=== PATIENT | female | born 1965 | race African-American/Black ===

== ENCOUNTER 2017-03-05 17:25 | Inpatient (IN) | payer OTHER ==
[2017-03-05 18:24] LABS: ABS Basophils 0 10^3/ul (0-0.2); ABS Eosinophils 0 10^3/ul (0-0.6); ABS Lymphocytes 1.2 10^3/ul (1.0-4.8); ABS Monocytes 0.5 10^3/ul (0-0.8); ABS Neutrophils 3.6 10^3/ul (1.5-7.7); ABS Nucleated RBC 0 10^3/ul; Eosinophil % 0.5 % (0-6); Hematocrit 34 % (35-47); Hemoglobin 11.3 g/dl (12.0-16.0); Lymphocyte % 22.1 % (25-47); Mean Corpuscular HGB Conc 33 g/dl (31-36); Mean Corpuscular Hemoglobin 29 pg (27-31); Mean Corpuscular Volume 88 fL (80-97); Mean Platelet Volume 9 um3 (7.4-10.4); Nucleated Red Blood Cells % 0.1; Platelet Count 243 10^3/ul (150-450); Red Blood Count 3.89 10^6/ul (4.0-5.4); Red Cell Distribution Width 15 % (10.5-15); White Blood Count 5.3 10^3/ul (3.5-10.8)
[2017-03-05 18:39] LABS: EGFR Non-African American 49.1 (>60)
--- NOTE | 2017-03-05 19:35 | RAD ---
INDICATION: Syncope COMPARISON: Chest x-ray March 17, 2015 TECHNIQUE: Single AP portable view of the chest was obtained. FINDINGS: Image quality is compromised due to the relative inferiority of a portable chest x-ray. The heart and mediastinum exhibit normal size and contour. The lungs are grossly clear. There is no evidence of a large pleural effusion. Visualized bones are normal for the patient's age. IMPRESSION: No radiographic evidence for acute cardiopulmonary abnormality on this portable chest x-ray.
[2017-03-05] MEDS ORDERED: Acetaminophen TAB* 325 MG PO PRN (20:05)
[2017-03-06] MEDS: Chlorhexidine MOUTHWASH 0.12%* 15 ML UDC SWISH SPIT SCH ×3 (00:21→21:52)
[2017-03-06] MEDS: Nystatin TOP POWDER* 15 GM BTL TOPICAL SCH ×3 (00:21→21:52)
[2017-03-06] MEDS: Heparin VIAL(*) 5000 UNITS/ML VIAL (FIVE THOUSAND) SUBCUT SCH ×4 (00:22→21:52)
--- NOTE | 2017-03-06 00:23 | HP ---
CC: Cathy Flores MD; Dr. Almaraz * HISTORY AND PHYSICAL: DATE OF ADMISSION: 03/05/17 PRIMARY CARE PROVIDER: Cathy Flores MD CHIEF COMPLAINT: "Passing out." HISTORY OF PRESENT ILLNESS: Leda Bhat is a 52-year-old female with history of hypertension, dyslipidemia, recent evaluation for possibility of colovaginal fistula who presented to the hospital after she passed out twice at her home. The patient stated that she was walking and all of a sudden she passed out. It was a witnessed syncope, lasted approximately 2 minutes. The patient came back and regained consciousness without any subsequent confusion, chest pain or shortness of breath. She stated that she lied in bed for a while because she felt weak and she decided to go to the bathroom to get ready to go to the emergency department and then she passed out again. The patient has no other symptoms and she had been feeling at her baseline recently. PAST MEDICAL HISTORY: Includes: 1. Hypertension. 2. Obesity. 3. History of sarcoidosis. 4. Dyslipidemia. 5. Depression. 6. Gastroesophageal reflux disease. 7. Impaired fasting glucose tolerance. MEDICATIONS AT HOME: Include: 1. Metoprolol 50 mg twice a day. 2. Chlorhexidine mouthwash 10 mL b.i.d. 3. Nystatin topical b.i.d. 4. Calcium carbonate and vitamin D 1 tablet daily. 5. Fluoxetine 40 mg daily. 6. Amlodipine 10 mg daily. 7. Losartan 100 mg daily. ALLERGIES: No known drug allergies. FAMILY HISTORY: Positive for mother who had pacemaker placement at the age of 65 and of old age in her 80s. Father had history of coronary artery bypass grafting in his 70s and in his 80s of old age. SOCIAL HISTORY: The patient smoked last 15 years ago. She denies any drug use. Drinks an occasional glass of wine. She lives alone and her oldest son, Remi Bhat, is her surrogate, Remi's phone number is [phone]. REVIEW OF SYSTEMS: Please see history of present illness. In addition to above mentioned, the patient stated that she had feeling fine. Denies any chest pain or shortness of breath, but she states that also she was told by multiple nurses in the past who checked her blood pressures and heart rate that she may be on "too much metoprolol." She has history of problems with possibility of a rectovaginal fistula and she stated that sometimes when she goes to the bathroom, it appears that some stool comes out of her vagina. She stated that the evaluation for that had been nonconclusive and she had a normal colonoscopy and evaluation in [place] in the past. PHYSICAL EXAMINATION GENERAL: The patient is a pleasant 52-year-old female with a BMI of 36. The patient is in no acute distress. Alert, awake, and oriented x3. VITAL SIGNS: Blood pressure of 137/74, heart rate of 53 but ranges between 35 and 53, respiratory rate 19, oxygen saturation 100% on room air, temperature of 97.5. HEENT: Head: Atraumatic, normocephalic. Eyes: Pupils are equal, reactive to light and accommodation. Oropharynx clear. Mucosa moist. NECK: Supple. No JVD. No bruits bilaterally. RESPIRATORY: Clear to auscultation bilaterally. CARDIOVASCULAR: Regular rate and rhythm. No murmur. ABDOMEN: Soft, nontender. Bowel sounds are present in all 4 quadrants. EXTREMITIES: There is no edema. Pulses are 2+ bilaterally. No clubbing, cyanosis. NEUROLOGIC: Cranial nerves II through XII grossly intact. Motor strength is 5/ 5 bilaterally. Sensation grossly intact. Speech clear. SKIN: No ecchymotic areas. No rashes noted. PSYCHIATRIC: The patient is pleasant and cooperative with evaluation, oriented x3 with no evidence of anxiety or depression. LAB DATA/DIAGNOSTIC STUDIES: White blood cell count of 5.3, hemoglobin 11.3, hematocrit of 34, platelets of 243,000. Sodium of 134, potassium 4.3, chloride 102, carbon dioxide 22, BUN 17, creatinine 1.16. Liver function tests were unremarkable. TSH of 2.48, lactic acid of 1.0, magnesium 2.0. The patient's EKG showed sinus bradycardia with heart rate in the 50s with prolonged LA interval and right bundle branch block. Portable chest x-ray read by the radiologist, impression: "No angiographic evidence for acute cardiopulmonary abnormality on his portable chest x-ray." ASSESSMENT AND PLAN: 1. This is a 52-year-old female who is on metoprolol for hypertension and presents with symptomatic bradycardia and syncope. At this point, it may be due to metoprolol, which is going to be discontinued. Due to the patient being now hemodynamically stable, she is going to be placed on telemetry monitored bed. As long as she does not become hypotensive, we can monitor her with pacer pads in place. I will ask Cardiology consultation in the morning. Her TSH is within normal limits and there are no electrolyte abnormalities to justify the patient's bradycardia otherwise. 2. For the patient's hypertension, her remaining medication amlodipine and losartan is going to be continued. 3. For DVT prophylaxis, the patient is going to be placed on heparin subcutaneously. 4. The patient's code status is full and her surrogate is her son as mentioned above. TIME SPENT: Approximately 62 minutes were spent on admission of this patient, more than half that time was spent [id number] with the patient during the interview and physical exam. [id number]/[facility] #: [id number] RIGO
[2017-03-06] MEDS ORDERED: Losartan TAB* 25 MG PO ONE (00:38)
[2017-03-06] MEDS ORDERED: Perflutren Lipid Microsphere* 3 ML VIAL ONE (07:58)
[2017-03-06] MEDS ORDERED: FLUoxetine CAP* 20 MG PO SCH (09:00)
[2017-03-06] MEDS ORDERED: Losartan TAB* 25 MG PO SCH (09:00)
--- NOTE | 2017-03-06 10:07 | ECHO ---
Patient: CONOR LAZO [facility] Rec#: [id number] : 1965 Date: 03/06/2017 Age: 52y Height: 160.02 cm / 63.0 in Weight: 94.35 kg / 207.9 lbs Sex: F BSA: 1.97 Room#: ICU 10 Admit Date#: 03/05/2017 Type: Inpatient Referring: Suni Sethi MD Reading: Deepak Lugo MD Hand Clerical Verifier: Mitali Murrell,LEENACS,RDMS CC: SHARON BAER Transthoracic Echocardiogram Indication: Bradycardia, Syncope BP: 141/66 HR: 59 Rhythm: Bradycardia Findings History: HTN, HLD, sarcoidosis, GERD, RBBB Technical Comments: The study quality is fair. The study is technically limited due to poor apical windows. Left Ventricle: The left ventricular chamber size is normal. Moderate concentric left ventricular hypertrophy is observed. Global left ventricular wall motion and contractility are within normal limits. There is normal left ventricular systolic function. The estimated ejection fraction is 60-65%. There is an E to A reversal in the mitral valve flow pattern suggestive of diastolic dysfunction. Left Atrium: The left atrial chamber size is normal. Right Ventricle: The right ventricular chamber size and systolic function are within normal limits. Right Atrium: The right atrium appears normal. Aortic Valve: The aortic valve is trileaflet. There is no evidence of aortic valve thickening. Systolic excursion of the aortic valve is normal. There is no evidence of aortic regurgitation. There is no evidence of aortic stenosis. Mitral Valve: The mitral valve leaflets appear normal. There is no evidence of mitral regurgitation. There is no evidence of mitral stenosis. Tricuspid Valve: The tricuspid valve leaflets are normal. There is trace tricuspid regurgitation. Unable to estimate the right ventricular systolic pressure. Pulmonic Valve: There is no evidence of pulmonic valve thickening. There is a trace pulmonic regurgitation. Pericardium: There is no significant pericardial effusion. Aorta: The aortic root appears normal. There is no dilatation of the aortic arch. Pulmonary Artery: The main pulmonary artery appears normal. Venous: The inferior vena cava appears normal in size. There is a greater than 50% respiratory change in the inferior vena cava dimension. Contrast: Definity was used to optimize study. A total of 2 ml was used. Definity was given by Melissa, EMPLOYEE DEVELOPMENT SPECIALIST, and patient tolerated it well. Conclusions The study is technically limited due to poor apical windows. Moderate concentric left ventricular hypertrophy is observed. There is normal left ventricular systolic function. The estimated ejection fraction is 60-65%. No significant valvular disease: There is trace tricuspid regurgitation. There is a trace pulmonic regurgitation. No reports of prior studies are offered for comparison. Measurements Name Value Normal Range RVIDd (AP) 2D 2.4 cm (0.9 - 2.6) IVSd (2D) 1.4 cm (0.6 - 1) LVPWd (2D) 1.3 cm (0.6 - 1) LVIDd (2D) 4.6 cm (3.6 - 5.4) LVIDs (2D) 2.5 cm - LV FS (2D) 45 % (25 - 45) Aortic Annulus 1.9 cm (1.4 - 2.6) Ao root diameter (2D) 2.6 cm (2.1 - 3.5) Ascending Ao 3 cm (2.1 - 3.4) Aortic arch 3.1 cm (1.8 - 3.4) LA dimension (AP) 2D 3.5 cm (2.3 - 3.8) LAd ISD 4CH 5.2 cm (2.9 - 5.3) LA ISD 4CH W 4.4 cm (2.5 - 4.5) Name Value Normal Range LA ESV SP 4CH (A/L) 67.27 ml - LA ESV SP 2CH (A/L) 62.15 ml - LA ESV BP (A/L) 65.78 ml - LA ESV BP (A/L) index 33 ml/m2 - LA ESV SP 4CH (MOD) 61.65 ml - LA ESV SP 2CH (MOD) 58.66 ml - LV EDV SP 4CH (MOD) 87.94 ml - LV ESV SP 4CH (MOD) 29.73 ml - EF SP 4CH (MOD) 66.19 % - LV EDV SP 2CH (MOD) 74.04 ml - LV ESV SP 2CH (MOD) 28.17 ml - EF SP 2CH (MOD) 61.96 % - LV EDV BP 83.23 ml - LV ESV BP 28.83 ml - BP EF (MOD) 65 % - Name Value Normal Range MV E-wave Vmax 0.6 m/sec - MV deceleration time 281 msec - MV A-wave Vmax 0.7 m/sec - MV E:A ratio 0.9 ratio - P. vein S-wave Vmax 0.4 m/sec - P. vein D-wave Vmax 0.4 m/sec - P. vein S:D Vmax ratio 1.1 ratio - P. vein A-wave duration 135 msec - LV septal e' Vmax 0.04 m/sec - LV lateral e' Vmax 0.06 m/sec - LV E:e' septal ratio 15 ratio - LV E:e' lateral ratio 10 ratio - Name Value Normal Range AV Vmax 1.6 m/sec - AV VTI 32.3 cm - AV peak gradient 10.1 mmHg - AV mean gradient 4.4 mmHg - LVOT Vmax 1.2 m/sec - LVOT VTI 26.6 cm - LVOT peak gradient 6 mmHg - LVOT mean gradient 2.6 mmHg - ADEN Vmax 1 m/sec - Name Value Normal Range RAP 8 mmHg - IVC diameter 1.3 cm - Name Value Normal Range PV Vmax 0.9 m/sec - PV peak gradient 3.2 mmHg -
[2017-03-06] MEDS: amLODIPine TAB* 5 MG PO SCH (10:14)
[2017-03-06] MEDS: Losartan TAB* 25 MG PO SCH ×2 (10:14→21:52)
--- NOTE | 2017-03-06 11:12 | PN ---
Subjective Date of Service: 03/06/17 Interval History: Pt feels well, had one event of ventricular standstill x approx 3-4 sec thins AM , asymptomatic Objective Active Medications: Acetaminophen (Tylenol Tab*) 650 mg PO Q4H PRN PRN Reason: FEVER/PAIN Amlodipine Besylate (Norvasc Tab*) 10 mg PO DAILY [facility] Last Admin: 03/06/17 10:14 Dose: 10 mg Chlorhexidine Gluconate (Peridex Mouth Wash 0.12%*) 10 ml SWISH SPIT BID [facility] Last Admin: 03/06/17 10:14 Dose: 10 ml Heparin Sodium (Porcine) (Heparin Vial(*)) 5,000 units SUBCUT Q8HR [facility] Last Admin: 03/06/17 06:44 Dose: 5,000 units Losartan Potassium (Cozaar Tab*) 50 mg PO BID [facility] Last Admin: 03/06/17 10:14 Dose: 50 mg Nystatin (Nystatin Top Powder*) 1 applic TOPICAL BID [facility] Last Admin: 03/06/17 10:14 Dose: 1 applic Vital Signs - 8 hr 03/06/17 03/06/17 03/06/17 03:15 03:30 03:45 Temperature Pulse Rate 54 52 51 Respiratory 19 15 16 Rate Blood Pressure 128/69 124/65 135/68 (mmHg) O2 Sat by Pulse 98 97 99 Oximetry 03/06/17 03/06/17 03/06/17 03:55 04:00 04:01 Temperature 98.7 F Pulse Rate 53 52 Respiratory 18 15 18 Rate Blood Pressure 128/63 (mmHg) O2 Sat by Pulse 98 98 Oximetry 03/06/17 03/06/17 03/06/17 04:15 04:30 04:45 Temperature Pulse Rate 56 58 53 Respiratory 16 15 16 Rate Blood Pressure 118/59 129/58 110/58 (mmHg) O2 Sat by Pulse 95 95 96 Oximetry 03/06/17 03/06/17 03/06/17 05:00 05:01 05:15 Temperature Pulse Rate 57 59 54 Respiratory 16 18 17 Rate Blood Pressure 105/52 113/59 (mmHg) O2 Sat by Pulse 97 97 97 Oximetry 03/06/17 03/06/17 03/06/17 05:30 05:45 06:00 Temperature Pulse Rate 55 52 54 Respiratory 16 13 16 Rate Blood Pressure 115/62 131/66 107/51 (mmHg) O2 Sat by Pulse 97 99 93 Oximetry 03/06/17 03/06/17 03/06/17 06:01 06:10 06:15 Temperature Pulse Rate 48 49 Respiratory 17 18 10 Rate Blood Pressure 106/55 (mmHg) O2 Sat by Pulse 98 99 Oximetry 03/06/17 03/06/17 03/06/17 06:31 07:00 07:01 Temperature Pulse Rate 56 53 51 Respiratory 15 15 20 Rate Blood Pressure 117/64 141/66 (mmHg) O2 Sat by Pulse 99 96 99 Oximetry 03/06/17 03/06/17 03/06/17 07:48 08:00 08:01 Temperature 97.5 F Pulse Rate Respiratory 18 18 Rate Blood Pressure 134/73 (mmHg) O2 Sat by Pulse Oximetry 03/06/17 03/06/17 03/06/17 09:00 09:01 10:00 Temperature Pulse Rate Respiratory 17 15 21 Rate Blood Pressure 125/73 (mmHg) O2 Sat by Pulse Oximetry 03/06/17 10:01 Temperature Pulse Rate Respiratory 21 Rate Blood Pressure 150/69 (mmHg) O2 Sat by Pulse Oximetry Oxygen Devices in Use Now: None Appearance: 52 yo F in nAD, aAOx3 Eyes: No Scleral Icterus, PERRLA Ears/Nose/Mouth/Throat: NL Teeth, Lips, Gums, Mucous Membranes Moist Neck: NL Appearance and Movements; NL JVP, Trachea Midline Respiratory: Symmetrical Chest Expansion and Respiratory Effort, Clear to Auscultation Cardiovascular: NL Sounds; No Murmurs; No JVD, RRR Abdominal: NL Sounds; No Tenderness; No Distention Lymphatic: No Cervical Adenopathy Extremities: No Clubbing, Cyanosis, - - trace pedeal edema b/l Skin: No Rash or Ulcers, No Nodules or Sclerosis Neurological: Alert and Oriented x 3, NL Muscle Strength and Tone Result Diagrams: 03/05/17 17:40 03/05/17 19:30 Microbiology and Other Data: Microbiology 03/06/17 00:53 Nasal Screen MRSA (PCR)(MELINA) - Final Nasal Mrsa Negative Assess/Plan/Problems-Billing Assessment: 52 yo F with h/o sarcoidosis, HTN presents after 2x syncopal events with HR in 30's - Patient Problems (1) Bradycardia Comment: Pt' s last metoprolol dose was on 03/05/17 AM pt still has bradycaria and ventricular standstill this aM. Echo shows EF 65% (2) HTN (hypertension) Comment: losartan, Norvasc to be cont (3) DVT prophylaxis Comment: HSQ (4) Depression Comment: pt requested to be take on Prozac, was not taking it at home Status and Disposition: inpatient
[2017-03-06] MEDS ORDERED: LORazepam TAB(*) 0.5 MG PO PRN (12:17)
[2017-03-06] MEDS ORDERED: LORazepam TAB(*) 0.5 MG ONE (12:21)
--- NOTE | 2017-03-06 13:04 | ED ---
Domi Marcano Thomas, scribed for Urbano Mendez MD on 03/05/17 at 1746 . Syncope/Near Syncope - HPI Summary HPI Summary: Patient is a 52 year old female who came to the emergency department after two episodes of fainting. The patient became dizzy this morning at 10am after taking her blood pressure medication. At 3pm today, she experienced her first episode of fainting, followed by a second. The patient denies any other symptoms , nausea, or diarrhea. - History Of Current Complaint Chief Complaint: EDDysrhythmPalp Time Seen by Provider: 03/05/17 17:34 Hx Obtained From: Patient Onset/Duration: Sudden Onset, Still Present Timing: Frequency Of Episodes - The patient fainted two times beginning at 3pm today. Context: Loss Of Consciousness Activity At Onset: At Rest Aggravating Factor(s): Nothing Alleviating Factor(s): Nothing Associated Signs And Symptoms: Dizzy, Other - [place] like she was going to have diarrhea but didn't. - Allergies/Home Medications Allergies/Adverse Reactions: Allergies Allergy/AdvReac Type Severity Reaction Status Date / Time No Known Allergies Allergy Verified 01/21/16 13:48 Home Medications: Home Medications Calcium Carbonate-Cholecalcife [Calcium 600/Vitamin D] 1 tab PO DAILY 03/05/17 [ History Confirmed 03/05/17] Chlorhexidine MOUTHWASH 0.12%* [Peridex Mouth Wash 0.12%*] 10 ml PO BID [History Confirmed 03/05/17] FLUoxetine CAP* [PROzac CAP*] 40 mg PO QAM 03/05/17 [History Confirmed 03/05/17] Losartan TAB* [Cozaar TAB*] 100 mg PO DAILY 03/05/17 [History Confirmed 03/05/17 ] Metoprolol Tartrate TAB* [Lopressor TAB*] 50 mg PO BID 03/05/17 [History Confirmed 03/05/17] Nystatin TOP POWDER* 1 applic TOPICAL BID 03/05/17 [History Confirmed 03/05/17] amLODIPine TAB* [Norvasc 5 mg TAB*] 10 mg PO DAILY 03/05/17 [History Confirmed 03/05/17] PMH/Surg Hx/FS Hx/Imm Hx Endocrine/Hematology History: Denies: Hx Diabetes Cardiovascular History: Reports: Hx Hypertension Denies: Hx Pacemaker/ICD History: Denies: Hx Renal Disease Musculoskeletal History: Denies: Hx Osteoporosis Sensory History: Denies: Hx Hearing Aid Psychiatric History: Denies: Hx Panic Disorder - Surgical History Surgery Procedure, Year, and Place: UTERINE ABLATION. LYMPH NODES REMOVED A FEW REMOVED FROM CHEST. LT BREAST BIOPSY - BENIGN Infectious Disease History: No Infectious Disease History: Denies: Traveled Outside the [place] in Last 30 Days - Family History Known Family History: Positive: Hypertension Negative: Diabetes - Social History Hx Tobacco Use: No Smoking Status (MU): Former Smoker Review of Systems Negative: Fever Negative: Diarrhea, Nausea Neurological: Other - Dizziness Positive: Syncope All Other Systems Reviewed And Are Negative: Yes Physical Exam - Summary Physical Exam Summary: Appearance: The patient is well-nourished in no acute distress and in no acute pain. Skin: The skin is warm and dry and skin color reflects adequate perfusion. HEENT: The head is normocephalic and atraumatic. The pupils are equal and reactive. The conjunctivae are clear and without drainage. Nares are patent and without drainage. Mouth reveals moist mucous membranes and the throat is without erythema and exudate. The external ears are intact. The ear canals are patent and without drainage. The tympanic membranes are intact. Neck: the neck is supple with full range of motion and non-tender. There are no carotid bruits. There is no neck vein distension. Respiratory: Chest is non-tender. Lungs are clear to auscultation and breath sounds are symmetrical and equal. Cardiovascular: Heart is regular rhythm and bradycardic. There is no murmur or rub auscultated. There is no peripheral edema and pulses are symmetrical and equal. Abdomen: The abdomen is soft and non-tender. There are normal bowel sounds heard in all four quadrants and there is no organomegaly palpated. Musculoskeletal: There is no back tenderness noted. Extremities are non-tender with full range of motion. There is good capillary refill. There is no peripheral edema or calf tenderness elicited. Neurological: Patient is alert and oriented to person, place and time. The patient has symmetrical motor strength in all four extremities. Cranial nerves are grossly intact. Deep tendon reflexes are symmetrical and equal in all four extremities. Psychiatric: The patient has an appropriate affect and does not exhibit any anxiety or depression. Triage Information Reviewed: Yes Vital Signs On Initial Exam: Initial Vitals Temp Pulse Resp BP Pulse Ox 97.5 F 37 8 158/54 98 03/05/17 17:27 03/05/17 17:27 03/05/17 17:27 03/05/17 17:27 03/05/17 17:27 Vital Signs Reviewed: Yes Diagnostics - Vital Signs Vital Signs Temp Pulse Resp BP Pulse Ox 03/05/17 17:27 97.5 F 37 8 158/54 98 - Laboratory Lab Results: Lab Results 03/05/17 03/05/17 03/05/17 Range/Units 17:40 17:40 17:40 WBC 5.3 (3.5-10.8) 10^3/ul RBC 3.89 L (4.0-5.4) 10^6/ul Hgb 11.3 L (12.0-16.0) g/dl Hct 34 L (35-47) % MCV 88 (80-97) fL MCH 29 (27-31) pg MCHC 33 (31-36) g/dl RDW 15 (10.5-15) % Plt Count 243 (150-450) 10^3/ul MPV 9 (7.4-10.4) um3 Neut % (Auto) 68.0 (38-83) % Lymph % (Auto) 22.1 L (25-47) % Aiken % (Auto) 8.9 (1-9) % Eos % (Auto) 0.5 (0-6) % Baso % (Auto) 0.5 (0-2) % Absolute Neuts (auto) 3.6 (1.5-7.7) 10^3/ul Absolute Lymphs (auto) 1.2 (1.0-4.8) 10^3/ul Absolute Monos (auto) 0.5 (0-0.8) 10^3/ul Absolute Eos (auto) 0 (0-0.6) 10^3/ul Absolute Basos (auto) 0 (0-0.2) 10^3/ul Absolute Nucleated RBC 0 10^3/ul Nucleated RBC % 0.1 Sodium 132 L (133-145) mmol/L Potassium TNP Chloride 102 (101-111) mmol/L Carbon Dioxide 22 (22-32) mmol/L Anion Gap 8 (2-11) mmol/L BUN 17 (6-24) mg/dL Creatinine 1.16 H (0.51-0.95) mg/dL Est GFR ( Amer) 63.1 (>60) Est GFR (Non-Af Amer) 49.1 (>60) BUN/Creatinine Ratio 14.7 (8-20) Glucose 109 H (70-100) mg/dL Lactic Acid 1.0 (0.5-2.0) mmol/L Calcium 9.7 (8.6-10.3) mg/dL Magnesium TNP Total Bilirubin 0.40 (0.2-1.0) mg/dL AST TNP ALT 22 (7-52) U/L Alkaline Phosphatase 79 (34-104) U/L Troponin I 0.01 (<0.04) ng/mL Total Protein 7.8 (6.4-8.9) g/dL Albumin 4.1 (3.2-5.2) g/dL Globulin 3.7 (2-4) g/dL Albumin/Globulin Ratio 1.1 (1-3) TSH 2.48 (0.34-5.60) mcIU/mL 03/05/17 Range/Units 19:30 WBC (3.5-10.8) 10^3/ul RBC (4.0-5.4) 10^6/ul Hgb (12.0-16.0) g/dl Hct (35-47) % MCV (80-97) fL MCH (27-31) pg MCHC (31-36) g/dl RDW (10.5-15) % Plt Count (150-450) 10^3/ul MPV (7.4-10.4) um3 Neut % (Auto) (38-83) % Lymph % (Auto) (25-47) % Aiken % (Auto) (1-9) % Eos % (Auto) (0-6) % Baso % (Auto) (0-2) % Absolute Neuts (auto) (1.5-7.7) 10^3/ul Absolute Lymphs (auto) (1.0-4.8) 10^3/ul Absolute Monos (auto) (0-0.8) 10^3/ul Absolute Eos (auto) (0-0.6) 10^3/ul Absolute Basos (auto) (0-0.2) 10^3/ul Absolute Nucleated RBC 10^3/ul Nucleated RBC % Sodium (133-145) mmol/L Potassium 4.3 Chloride (101-111) mmol/L Carbon Dioxide (22-32) mmol/L Anion Gap (2-11) mmol/L BUN (6-24) mg/dL Creatinine (0.51-0.95) mg/dL Est GFR ( Amer) (>60) Est GFR (Non-Af Amer) (>60) BUN/Creatinine Ratio (8-20) Glucose (70-100) mg/dL Lactic Acid (0.5-2.0) mmol/L Calcium (8.6-10.3) mg/dL Magnesium 2.0 Total Bilirubin (0.2-1.0) mg/dL AST 25 ALT (7-52) U/L Alkaline Phosphatase (34-104) U/L Troponin I (<0.04) ng/mL Total Protein (6.4-8.9) g/dL Albumin (3.2-5.2) g/dL Globulin (2-4) g/dL Albumin/Globulin Ratio (1-3) TSH (0.34-5.60) mcIU/mL Result Diagrams: 03/05/17 17:40 03/05/17 19:30 Lab Statement: Any lab studies that have been ordered have been reviewed, and results considered in the medical decision making process. - Radiology CXR Radiology Interpretation Completed By: Radiologist - RESULTS PENDING--SEE [facility] - EKG 17:29 Cardiac Rate: Bradycardia EKG Rhythm: Sinus Bradycardia - at 53 BPM. - Additional Comments Diagnostic Additional Comments: EKG strip obtained at 17:33. Impression: Mobitz Type 2 Second Degree Block. Course/Dx Course Of Treatment: Ms. Bhat presented after faintiing twice today after getting up. She felt fine lying sown but felt dizzy if she got up. She was placed on the monitor and noted to be in a sinus bradycardia primarily but occasionally wouldd go into second degree block and drop every other beat. Her pressure was OK lying down and the external pacer plads were placed on her while we got labs etc. I spoke with Dr. Almaraz and she is being admitted to the ICU by the hospitalists. - Diagnoses Provider Diagnoses: Second degree heart block - Physician Notifications Discussed Care of Patient With: Loyd Almaraz Time Discussed With Above Provider: 19:04 Instructed by Provider To: Other - I consulted with Dr. Almaraz, folding machine operator, and Dr. Sethi, hospitalist. Dr. Sethi will admit the patient. - Critical Care Time Critical Care Time: 30-74 min Discharge - Discharge Plan Condition: Fair Disposition: ADMITTED TO [facility] documentation as recorded by the Domi butler Thomas accurately reflects the service I personally performed and the decisions made by me, Urbano Mendez MD.
[2017-03-06] MEDS ORDERED: ceFAZolin 2 GM PREMIX (*) 2 GM/50 ML BAG IVPB ONE (14:34)
[2017-03-06] MEDS ORDERED: ceFAZolin 1 GM in Dextrose (*) 1 GM/50 ML BAG IVPB ONE (14:34)
[2017-03-06] MEDS ORDERED: Diazepam TAB(*) 5 MG PO ONE (14:34)
[2017-03-06] MEDS: NS 0.9% 1000 ML* 1,000 ML IV SCH (14:45)
[2017-03-06] MEDS ORDERED: fentaNYL* 50 MCG/ML 2 ML VIAL (100 MCG VIAL) ONE (14:51)
[2017-03-06] MEDS ORDERED: Midazolam* 1 MG/ML 10 ML VIAL (10 MG) ONE (14:52)
[2017-03-06] MEDS ORDERED: Lidocaine 1% INJ* 10 MG/ML 30 ML SDV ONE (14:52)
[2017-03-06] MEDS ORDERED: ceFAZolin 1 GM/10 ML flush(*) SYRINGE for pocket flush (cardiology) FLUSH ONE (15:00)
[2017-03-06] MEDS ORDERED: oxyCODONE/Acetamin 5/325 MG* TAB PO PRN (16:22)
--- NOTE | 2017-03-06 16:39 | CONS ---
CC: Dr. Sethi* CARDIOLOGY CONSULTATION: DATE OF CONSULT: 03/06/17 INDICATION FOR CONSULT: Secondary-degree heart block, syncope. HISTORY OF PRESENT ILLNESS: The patient is a 52-year-old female with a history of hypertension, history of sarcoid, who had 2 episodes of near syncope and syncope yesterday. The patient states that she awoke in the morning, was feeling well, took her morning medications, which include metoprolol tartrate 50 mg, she takes it twice a day. The patient states that around 11 o'clock, she was in the kitchen, she smelled some of her food and got a little bit nauseous and then got profoundly lightheaded. She had to sit down and rest for a little bit and then proceed with her day. Around 5 o'clock in the afternoon, she was out of her house and felt lightheaded and felt like she was going to pass out. She sat down in the couch and had a witnessed syncope. She was unresponsive for about a minute and then woke up. She was transported to the emergency room. In the emergency room, she got up to go to the bathroom and had another near syncopal episode. In the emergency room, she was noted to have episodes of 2:1 heart block with heart rates down to 30. This morning, the patient had a run of 6 beats of non-conducted P waves with a total ventricular pause of 4.6 seconds. The patient denies any chest pain. She denies any shortness of breath. She denies any other changes in her medical condition. The patient has not had any new medications added to her regimen. The patient does have a history of sarcoid. She is currently not on any treatment. PAST MEDICAL HISTORY: Significant for hypertension, obesity, sarcoidosis, depression, gastroesophageal reflux disease. OUTPATIENT MEDICATIONS: 1. Metoprolol tartrate 50 mg b.i.d. 2. Fluoxetine 40 mg a day. 3. Amlodipine 10 mg a day. 4. Losartan 100 mg a day. ALLERGIES: No known drug allergies. FAMILY HISTORY: Her mother had a history of pacemaker implantation at the age of 65. Father had history of coronary artery bypass surgery and in his 80s. SOCIAL HISTORY: She is a previous smoker. She quit 15 years ago. Denies any alcohol. She lives with her older son. PHYSICAL EXAM: Height is 5 feet 3 inches, weight 208 pounds. Heart rate is 56 , temperature 98.7, blood pressure 142/68, respiratory rate is 16. Sclerae anicteric. Oropharynx is pink without erythema. Carotids are 2+ without bruits. JVD is normal. Thyroid is normal. Cardiac Exam: S1, S2 without any murmurs, rubs, or gallops. Lungs are clear to auscultation bilaterally. There is no dullness to percussion. Abdomen is soft, nontender, nondistended with normoactive bowel sounds. Extremities show no edema. She has 2+ pulses throughout. The patient is awake, alert, and oriented. She moves all 4 extremities equally. DIAGNOSTIC STUDIES/LAB DATA: An echocardiogram done today demonstrates normal LV size and systolic function, trace tricuspid regurgitation. Laboratory studies: CBC within normal limits. Chemistries within normal limits. Troponin is negative. Her EKG demonstrates sinus bradycardia at 56 beats per minute with incomplete right bundle branch block. IMPRESSION: This is a 52-year-old female with a history of sarcoid, admitted to the hospital with 2 syncopal episodes. The patient clearly has episodes of high- degree atrioventricular block. The question is whether it is because of beta jeanne or whether she has intrinsic conduction disease. For now, my recommendation is to stay off her beta blockers and observe her another 24 hours. The patient has a history of sarcoid, the question is whether she should get a cardiac MRI before pacemaker implantation. I will discuss this with Electrophysiology in [place]. Further recommendations pending her trial off beta jeanne. [id number]/[facility] #: [id number] RIGO
--- NOTE | 2017-03-06 18:55 | RAD ---
INDICATION: Left cardiac pacemaker placement COMPARISON: Preoperative chest x-ray March 05, 2017 TECHNIQUE: Single AP portable view of the chest was obtained. FINDINGS: Image quality is compromised due to the relative inferiority of a portable chest x-ray. There is been interval placement of a left upper chest cardiac pacemaker with 2 leads overlying the heart. There are surgical skin chiara overlying the superior margin of the pacer. The heart and mediastinum exhibit normal size and contour. The lungs are grossly clear. There is no pneumothorax. Visualized bones are normal for the patient's age. IMPRESSION: No radiographic evidence for acute cardiopulmonary abnormality status post left upper chest cardiac pacemaker placement
[2017-03-06 20:31] LABS: Urine Appearance Clear; Urine Blood Negative (Negative); Urine Color Yellow; Urine Ketones Negative (Negative); Urine Protein 1+(30 mg/dL) (Negative); Urine Specific Gravity 1.013 (1.010-1.030); Urine Urobilinogen Negative (Negative)
[2017-03-07] MEDS: ceFAZolin 1 GM VIAL(*) 1 GM in NS 0.9% 50 ML* 50 ML IVPB SCH ×2 (01:39→09:14)
[2017-03-07] MEDS: NS 0.9% 1000 ML* 1,000 ML IV SCH (02:35)
--- NOTE | 2017-03-07 05:11 | PTEDU ---
Patient Name: CONOR LAZO CONOR LAZO selected video: Permanent Pacemaker Implant to view on 03/07/2017 at 5:11:02 AM from [id number]
[2017-03-07] MEDS: Heparin VIAL(*) 5000 UNITS/ML VIAL (FIVE THOUSAND) SUBCUT SCH (06:42)
--- NOTE | 2017-03-07 06:43 | OP ---
DATE OF OPERATION: 03/06/17 - ROOM #ICU-10 DATE OF : 65 SURGEON: Jose Juan Katz MD ANESTHESIA: Local anesthesia with conscious sedation. PRE-OP DIAGNOSES: Third-degree heart block, sarcoidosis. POST-OP DIAGNOSES: Third-degree heart block, sarcoidosis. OPERATIVE PROCEDURE: Dual-chamber pacemaker implantation. ESTIMATED BLOOD LOSS: Nil. COMPLICATIONS: None. INDICATIONS: The patient is a 52-year-old female with a history of hypertension , history of sarcoidosis who was admitted to the hospital with syncopal episodes. She was found to have runs of 2:1 heart block with a heart rate of 30 as well as runs of nonconductive P-waves with up to 6 to 8 seconds of asystole. The patient had been off of her beta-jeanne for more than 24 hours and was still having significant AV block. Permanent pacemaker was recommended because of her history of sarcoidosis and her young age. It was presumed that the patient had cardiac sarcoid, which may be precipitating her heart block. Dual- chamber ICD was implanted with a presumptive diagnosis of cardiac sarcoid. DESCRIPTION OF PROCEDURE: The patient was brought to the procedure room in a fasting state. Informed consent had been obtained prior to the procedure. All labs were reviewed. The patient was placed supine on the procedure table and her left deltopectoral area was cleaned and draped in the usual fashion. 1% lidocaine was used for local anesthesia. Under ultrasound guidance, the axillary vein was entered by a modified Seldinger technique and a guidewire was placed. A second guidewire was placed under the same technique. A 4-cm incision was made in the pectoral area and blunt dissection was carried down to the pectoral fascia. A pocket was fashioned for the ICD. Over the first guidewire, a 9-Belgian sheath introducer was placed through which an ICD lead was advanced at the RV apex. The ICD lead is a Medtronic model 6935, serial number [id number]. It had an R-wave sensitivity of 4.5, impedance 795 ohms, threshold 1 volt at 0.5 msec. The ventricular lead was sutured to the pectoral fascia using 0 silk. Over the second guidewire, a 7-Belgian sheath introducer was placed through which a right atrial lead was advanced to the high right atrium. The atrial lead is a Medtronic model 5076, serial number [id number]. It had a P-wave sensitivity of 1.9, impedance 849 ohms, threshold 0.6 volt at 0.5 msec. The atrial lead was sutured to the pectoral fascia. The pocket was flushed with antibiotic infused normal saline. An ICD was again attached to the atrial and ventricular lead. The device was placed into the pocket. The surgical incision was closed in 3 layers. The patient was returned to the ICU in stable condition. [id number]/[facility] #: [id number] RIGO
--- NOTE | 2017-03-07 08:59 | DCNOTE ---
Subjective Date of Service: 03/07/17 Interval History: Mild pain at surgical site. Objective Active Medications: Acetaminophen (Tylenol Tab*) 650 mg PO Q4H PRN PRN Reason: FEVER/PAIN Amlodipine Besylate (Norvasc Tab*) 10 mg PO DAILY [facility] Last Admin: 03/06/17 10:14 Dose: 10 mg Chlorhexidine Gluconate (Peridex Mouth Wash 0.12%*) 10 ml SWISH SPIT BID [facility] Last Admin: 03/06/17 21:52 Dose: 10 ml Heparin Sodium (Porcine) (Heparin Vial(*)) 5,000 units SUBCUT Q8HR [facility] Last Admin: 03/07/17 06:42 Dose: 5,000 units Sodium Chloride (Ns 0.9% 1000 Ml*) 1,000 mls @ 100 mls/hr IV PER RATE [facility] Last Admin: 03/07/17 02:35 Dose: 100 mls/hr Cefazolin Sodium 1 gm/ Sodium (Chloride) 50 mls @ 200 mls/hr IVPB Q8H [facility] Last Admin: 03/07/17 01:39 Dose: 200 mls/hr Lorazepam (Ativan Tab(*)) 0.5 mg PO Q6H PRN PRN Reason: ANXIETY Last Admin: 03/06/17 12:22 Dose: 0.5 mg Losartan Potassium (Cozaar Tab*) 50 mg PO BID [facility] Last Admin: 03/06/17 21:52 Dose: 50 mg Nystatin (Nystatin Top Powder*) 1 applic TOPICAL BID [facility] Last Admin: 03/06/17 21:52 Dose: 1 applic Oxycodone/Acetaminophen (Percocet 5/325 Tab*) 1 tab PO Q4H PRN PRN Reason: PAIN Last Admin: 03/07/17 00:17 Dose: 1 tab Vital Signs - 8 hr 03/07/17 03/07/17 03/07/17 01:00 01:01 01:15 Temperature Pulse Rate 62 61 66 Respiratory 7 7 20 Rate Blood Pressure 104/60 106/61 (mmHg) O2 Sat by Pulse 93 93 95 Oximetry 03/07/17 03/07/17 03/07/17 01:30 01:45 02:00 Temperature Pulse Rate 60 63 60 Respiratory 17 14 16 Rate Blood Pressure 114/59 106/61 106/65 (mmHg) O2 Sat by Pulse 93 92 93 Oximetry 03/07/17 03/07/17 03/07/17 02:01 02:15 02:30 Temperature Pulse Rate 60 60 60 Respiratory 17 6 19 Rate Blood Pressure 104/63 103/67 (mmHg) O2 Sat by Pulse 93 93 93 Oximetry 03/07/17 03/07/17 03/07/17 02:45 03:00 03:01 Temperature Pulse Rate 60 60 60 Respiratory 13 16 18 Rate Blood Pressure 109/64 109/69 (mmHg) O2 Sat by Pulse 93 93 93 Oximetry 03/07/17 03/07/17 03/07/17 03:15 03:30 03:45 Temperature Pulse Rate 60 60 60 Respiratory 18 9 21 Rate Blood Pressure 116/66 114/69 112/68 (mmHg) O2 Sat by Pulse 94 94 93 Oximetry 03/07/17 03/07/17 03/07/17 04:00 04:01 04:15 Temperature 97.0 F Pulse Rate 60 60 60 Respiratory 12 10 21 Rate Blood Pressure 116/70 130/78 (mmHg) O2 Sat by Pulse 94 94 86 Oximetry 03/07/17 03/07/17 03/07/17 04:30 04:45 05:00 Temperature Pulse Rate 60 60 60 Respiratory 18 16 11 Rate Blood Pressure 139/78 147/79 125/71 (mmHg) O2 Sat by Pulse 96 95 94 Oximetry 03/07/17 03/07/17 03/07/17 05:15 05:30 06:00 Temperature Pulse Rate 60 60 60 Respiratory 15 12 19 Rate Blood Pressure 125/68 117/83 (mmHg) O2 Sat by Pulse 94 94 97 Oximetry 03/07/17 03/07/17 03/07/17 07:00 07:01 08:00 Temperature 97.4 F Pulse Rate 60 60 Respiratory 17 18 Rate Blood Pressure 165/75 (mmHg) O2 Sat by Pulse 95 95 Oximetry Oxygen Devices in Use Now: None Appearance: Alert, partly up in bed. In good spirits. Looks comfortable. Eyes: No Scleral Icterus Respiratory: Symmetrical Chest Expansion and Respiratory Effort, Clear to Auscultation, Clear to Percussion Cardiovascular: NL Sounds; No Murmurs; No JVD, RRR, No Edema, - - ICD site L subclavicular area dressing dry. Extremities: No Edema, No Clubbing, Cyanosis, - Skin: No Rash or Ulcers, No Nodules or Sclerosis, - Neurological: Alert and Oriented x 3, NL Sensation Result Diagrams: 03/05/17 17:40 03/05/17 19:30 Additional Lab and Data: Lab Results 03/05/17 03/05/17 03/05/17 Range/Units 17:40 17:40 17:40 WBC 5.3 (3.5-10.8) 10^3/ul RBC 3.89 L (4.0-5.4) 10^6/ul Hgb 11.3 L (12.0-16.0) g/dl Hct 34 L (35-47) % MCV 88 (80-97) fL MCH 29 (27-31) pg MCHC 33 (31-36) g/dl RDW 15 (10.5-15) % Plt Count 243 (150-450) 10^3/ul MPV 9 (7.4-10.4) um3 Neut % (Auto) 68.0 (38-83) % Lymph % (Auto) 22.1 L (25-47) % [place] % (Auto) 8.9 (1-9) % Eos % (Auto) 0.5 (0-6) % Baso % (Auto) 0.5 (0-2) % Absolute Neuts (auto) 3.6 (1.5-7.7) 10^3/ul Absolute Lymphs (auto) 1.2 (1.0-4.8) 10^3/ul Absolute Monos (auto) 0.5 (0-0.8) 10^3/ul Absolute Eos (auto) 0 (0-0.6) 10^3/ul Absolute Basos (auto) 0 (0-0.2) 10^3/ul Absolute Nucleated RBC 0 10^3/ul Nucleated RBC % 0.1 Sodium 132 L (133-145) mmol/L Potassium TNP Chloride 102 (101-111) mmol/L Carbon Dioxide 22 (22-32) mmol/L Anion Gap 8 (2-11) mmol/L BUN 17 (6-24) mg/dL Creatinine 1.16 H (0.51-0.95) mg/dL Est GFR ( Amer) 63.1 (>60) Est GFR (Non-Af Amer) 49.1 (>60) BUN/Creatinine Ratio 14.7 (8-20) Glucose 109 H (70-100) mg/dL Lactic Acid 1.0 (0.5-2.0) mmol/L Calcium 9.7 (8.6-10.3) mg/dL Magnesium TNP Total Bilirubin 0.40 (0.2-1.0) mg/dL AST TNP ALT 22 (7-52) U/L Alkaline Phosphatase 79 (34-104) U/L Troponin I 0.01 (<0.04) ng/mL Total Protein 7.8 (6.4-8.9) g/dL Albumin 4.1 (3.2-5.2) g/dL Globulin 3.7 (2-4) g/dL Albumin/Globulin Ratio 1.1 (1-3) TSH 2.48 (0.34-5.60) mcIU/mL 03/05/17 Range/Units 19:30 WBC (3.5-10.8) 10^3/ul RBC (4.0-5.4) 10^6/ul Hgb (12.0-16.0) g/dl Hct (35-47) % MCV (80-97) fL MCH (27-31) pg MCHC (31-36) g/dl RDW (10.5-15) % Plt Count (150-450) 10^3/ul MPV (7.4-10.4) um3 Neut % (Auto) (38-83) % Lymph % (Auto) (25-47) % [place] % (Auto) (1-9) % Eos % (Auto) (0-6) % Baso % (Auto) (0-2) % Absolute Neuts (auto) (1.5-7.7) 10^3/ul Absolute Lymphs (auto) (1.0-4.8) 10^3/ul Absolute Monos (auto) (0-0.8) 10^3/ul Absolute Eos (auto) (0-0.6) 10^3/ul Absolute Basos (auto) (0-0.2) 10^3/ul Absolute Nucleated RBC 10^3/ul Nucleated RBC % Sodium (133-145) mmol/L Potassium 4.3 Chloride (101-111) mmol/L Carbon Dioxide (22-32) mmol/L Anion Gap (2-11) mmol/L BUN (6-24) mg/dL Creatinine (0.51-0.95) mg/dL Est GFR ( Amer) (>60) Est GFR (Non-Af Amer) (>60) BUN/Creatinine Ratio (8-20) Glucose (70-100) mg/dL Lactic Acid (0.5-2.0) mmol/L Calcium (8.6-10.3) mg/dL Magnesium 2.0 Total Bilirubin (0.2-1.0) mg/dL AST 25 ALT (7-52) U/L Alkaline Phosphatase (34-104) U/L Troponin I (<0.04) ng/mL Total Protein (6.4-8.9) g/dL Albumin (3.2-5.2) g/dL Globulin (2-4) g/dL Albumin/Globulin Ratio (1-3) TSH (0.34-5.60) mcIU/mL Microbiology and Other Data: Microbiology 03/06/17 00:53 Nasal Screen MRSA (PCR)(MELINA) - Final Nasal Mrsa Negative Assess/Plan/Problems-Billing Assessment: 52 yo F with h/o sarcoidosis, HTN presents after 2x syncopal events with HR in 30's - Patient Problems (1) Bradycardia Current Visit: Yes Status: Acute Code(s): R00.1 - BRADYCARDIA, UNSPECIFIED SNOMED Code(s): 77850410 Comment: Pt' s last metoprolol dose was on 03/05/17 AM. ICD implanted 03/06/17. Fup Dr. Katz. (2) HTN (hypertension) Current Visit: Yes Status: Acute Code(s): I10 - ESSENTIAL (PRIMARY) HYPERTENSION SNOMED Code(s): 60735448 Comment: losartan, Norvasc to be continued at home doses. No metoprolol. (3) Depression Current Visit: Yes Status: Acute Code(s): F32.9 - MAJOR DEPRESSIVE DISORDER , SINGLE EPISODE, UNSPECIFIED SNOMED Code(s): 83358276 Comment: Pt states she has not take fluoxetine for 2 weeks. She states she will discuss this with Dr. Gasca. Status and Disposition: Discharge when cleared by photographer's assistant.
[2017-03-07] MEDS ORDERED: Losartan TAB* 25 MG PO SCH ×2 (09:00→11:00)
[2017-03-07 09:25] LABS: ABS Basophils 0 10^3/ul (0-0.2); ABS Eosinophils 0 10^3/ul (0-0.6); ABS Lymphocytes 1.4 10^3/ul (1.0-4.8); ABS Monocytes 0.6 10^3/ul (0-0.8); ABS Neutrophils 3.8 10^3/ul (1.5-7.7); ABS Nucleated RBC 0 10^3/ul; Eosinophil % 0.6 % (0-6); Hematocrit 33 % (35-47); Hemoglobin 11.2 g/dl (12.0-16.0); Lymphocyte % 23.4 % (25-47); Mean Corpuscular HGB Conc 34 g/dl (31-36); Mean Corpuscular Hemoglobin 30 pg (27-31); Mean Corpuscular Volume 87 fL (80-97); Mean Platelet Volume 9 um3 (7.4-10.4); Nucleated Red Blood Cells % 0.1; Platelet Count 253 10^3/ul (150-450); Red Blood Count 3.81 10^6/ul (4.0-5.4); Red Cell Distribution Width 15 % (10.5-15); White Blood Count 5.8 10^3/ul (3.5-10.8)
[2017-03-07] MEDS: amLODIPine TAB* 5 MG PO SCH (09:39)
[2017-03-07 09:56] LABS: EGFR Non-African American 59.6 (>60)
--- NOTE | 2017-03-07 10:23 | RAD ---
HISTORY: Status post device implant COMPARISONS: March 06, 2014 VIEWS: 4: Frontal dual-energy and lateral views of the chest. FINDINGS: CARDIOMEDIASTINAL SILHOUETTE: The cardiomediastinal silhouette is normal. DIANE: The diane are normal. PLEURA: The costophrenic angles are sharp. No pleural abnormalities are noted. LUNG PARENCHYMA: The lungs are clear. ABDOMEN: The upper abdomen is clear. There is no subphrenic gas. There is no appreciable pneumothorax. BONES AND SOFT TISSUES: No bone or soft tissue abnormalities are noted. OTHER: A left-sided pacemaker is noted. Leads are intact. IMPRESSION: NO ACTIVE CARDIOPULMONARY DISEASE.
--- NOTE | 2017-03-07 10:34 | PN ---
Progress Note - Progress Note Date of Service: 03/07/17 Note: Time spent on discharge 45 minutes.
[2017-03-07] MEDS: Chlorhexidine MOUTHWASH 0.12%* 15 ML UDC SWISH SPIT SCH (11:06)
[2017-03-07] MEDS: Nystatin TOP POWDER* 15 GM BTL TOPICAL SCH (11:11)
[2017-03-07 14:08] VITALS: BP 138/78
--- NOTE | 2017-03-07 14:24 | PN ---
Subjective Date of Service: 03/07/17 - CC: sycoope Interval History: Pt feels much better today, no longer dizzy, no LOC. Not cold. Feels 80% back to normal. Denies SOB. Medications Active Medications: Acetaminophen (Tylenol Tab*) 650 mg PO Q4H PRN PRN Reason: FEVER/PAIN Last Admin: 03/07/17 10:08 Dose: 650 mg Amlodipine Besylate (Norvasc Tab*) 10 mg PO DAILY [facility] Last Admin: 03/07/17 09:39 Dose: 10 mg Chlorhexidine Gluconate (Peridex Mouth Wash 0.12%*) 10 ml SWISH SPIT BID [facility] Last Admin: 03/07/17 11:06 Dose: 10 ml Heparin Sodium (Porcine) (Heparin Vial(*)) 5,000 units SUBCUT Q8HR [facility] Last Admin: 03/07/17 06:42 Dose: 5,000 units Sodium Chloride (Ns 0.9% 1000 Ml*) 1,000 mls @ 100 mls/hr IV PER RATE [facility] Last Admin: 03/07/17 02:35 Dose: 100 mls/hr Cefazolin Sodium 1 gm/ Sodium (Chloride) 50 mls @ 200 mls/hr IVPB Q8H [facility] Last Admin: 03/07/17 09:14 Dose: 200 mls/hr Lorazepam (Ativan Tab(*)) 0.5 mg PO Q6H PRN PRN Reason: ANXIETY Last Admin: 03/06/17 12:22 Dose: 0.5 mg Losartan Potassium (Cozaar Tab*) 100 mg PO DAILY [facility] Last Admin: 03/07/17 11:06 Dose: 100 mg Nystatin (Nystatin Top Powder*) 1 applic TOPICAL BID [facility] Last Admin: 03/07/17 11:11 Dose: Not Given Oxycodone/Acetaminophen (Percocet 5/325 Tab*) 1 tab PO Q4H PRN PRN Reason: PAIN Last Admin: 03/07/17 00:17 Dose: 1 tab Objective Vital Signs: Temp Pulse Resp BP Pulse Ox 97.9 F 77 24 138/78 99 03/07/17 12:00 03/07/17 14:04 03/07/17 14:04 03/07/17 14:04 03/07/17 14:04 Oxygen Devices in Use Now: None Appearance: obese somewhat older woman seated, observed walking, appears comfortable and deconditioned. Eyes: No Scleral Icterus, PERRLA Ears/Nose/Mouth/Throat: Clear Oropharnyx, Mucous Membranes Moist Neck: NL Appearance and Movements; NL JVP, Trachea Midline Respiratory: Symmetrical Chest Expansion and Respiratory Effort, Clear to Auscultation Cardiovascular: NL Sounds; No Murmurs; No JVD, RRR Abdominal: NL Sounds; No Tenderness; No Distention Extremities: No Clubbing, Cyanosis - thick legs, no pitting edema. Skin: No Rash or Ulcers - incision L subclavian fossa free of eccymosis or hematoma, no evidence of infection. Neurological: Alert and Oriented x 3, NL Gait Lines/Tubes/Other Access: Clean, Dry and Intact Peripheral IV Laboratory Results: 03/07/17 09:13 03/07/17 09:13 Total Bilirubin 0.40 mg/dL (0.2-1.0) 03/05/17 17:40 AST 25 U/L (13-39) 03/05/17 19:30 ALT 22 U/L (7-52) 03/05/17 17:40 Alkaline Phosphatase 79 U/L (34-104) 03/05/17 17:40 Total Protein 7.8 g/dL (6.4-8.9) 03/05/17 17:40 Albumin 4.1 g/dL (3.2-5.2) 03/05/17 17:40 Globulin 3.7 g/dL (2-4) 03/05/17 17:40 Albumin/Globulin Ratio 1.1 (1-3) 03/05/17 17:40 TSH 2.48 mcIU/mL (0.34-5.60) 03/05/17 17:40 Diagnostic Imaging: CXR today: no pneumothorax, good lead placement. EKG Data: ICD interogation: A pace 40%, V pace 99%. P sense 1.8 mV, 475 Ohms, pace: 0.5 V@ 0.4 ms. V sense 6.8 mV, 703 Ohms, pace: 0.5 V@ 0.4 ms. NO AF or VT. Programmed to AAI-DDD 60 bpm min. Assessment/Plan 52 yo female admitted with acute onset of syncope, WEBB, feeling cold and ECG evidence of 2nd degree HB Type 2 alt with NSR, complete heart block, no effective escape rhythm. Etiology uncertain, echo showed LVH. Differential included sarcoid heart disease. I added Lyme serology. See Dr. Katz's note for details. Currently feeling much better, pacemaker functioning well. OK for discharge to home. Will need antibiotics. Wound check/visit with Dr. Katz next week. I discussed wound care with the patient in front of her 2 sons and daughter in law.
--- NOTE | 2017-03-07 22:18 | DS ---
CC: Dr. Flores; Dr. Katz * DISCHARGE SUMMARY: DATE OF ADMISSION: 03/05/17 DATE OF DISCHARGE: 03/07/17 HISTORY: This 52-year-old woman that presented with syncope. This occurred while she was walking without any warning. It was witnessed and she was unconscious for about 2 minutes, there were no sequelae. EKG showed sinus bradycardia with heart rate in the 50s with prolonged MA interval and right bundle branch block. She was placed on the telemetry unit. In the first 24 hours, she had 3 to 4 seconds of asystole. She is not symptomatic from this. She had an echocardiogram on the day of admission. The echocardiogram showed normal ejection fraction, it was technically limited. There was moderate concentric left ventricular hypertrophy. No significant valvular disease. An ICD was placed on 03/06/17. She tolerated the procedure well. Her metoprolol was discontinued at the time of admission. She will go home on her other usual medications. I note the patient stated she had not taken fluoxetine for 2 weeks and preferred not to take it, but rather to discuss use of it with Dr. Gasca. FINAL DIAGNOSES: 1. Asystole. 2. Hypertension. 3. Depression. DISCHARGE MEDICATIONS: 1. Chlorhexidine mouthwash 10 mL b.i.d. 2. Nystatin topical powder applied twice daily. 3. Calcium with D3 1 tab daily. 4. Amlodipine 10 mg daily. 5. Losartan 100 mg daily. [id number]/[facility] #: [id number] MTDD
== END 2017-03-07 15:30 | disposition home or self-care (01) | DRG 171 ==
LOC: ED 17:25 → MEDTELE 19:48 → ICU 23:45
PROVIDERS: ADMIT Internal Medicine; ATTEND Internal Medicine
PROC: 0JH606Z Insertion of Pacemaker, Dual Chamber into Chest Subcutaneous Tissue and Fascia, Open Approach (ICD-10-PCS; principal; 2017-03-05)
PROC: 02H63JZ Insertion of Pacemaker Lead into Right Atrium, Percutaneous Approach (ICD-10-PCS; 2017-03-05)
PROC: 02HK3JZ Insertion of Pacemaker Lead into Right Ventricle, Percutaneous Approach (ICD-10-PCS; 2017-03-05)
DX: I44.2 Atrioventricular block, complete (principal); I46.9 Cardiac arrest, cause unspecified; R73.01 Impaired fasting glucose; I10 Essential (primary) hypertension; E78.5 Hyperlipidemia, unspecified; R55 Syncope and collapse; E66.9 Obesity, unspecified; D86.9 Sarcoidosis, unspecified; K21.9 Gastro-esophageal reflux disease without esophagitis; R73.02 Impaired glucose tolerance (oral); F32.9 Major depressive disorder, single episode, unspecified; I45.10 Unspecified right bundle-branch block; Z68.37 Body mass index [BMI] 37.0-37.9, adult; Z82.49 Family history of ischemic heart disease and other diseases of the circulatory system; Z87.891 Personal history of nicotine dependence
CPT/HCPCS: 33263; 36415; 71045; 71046; 80048; 80053; 81003; 81015; 83605; 83735; 84443; 84484; 85025; 86618; 87086; 87641; 93005; 93306; 99156; 99157; 99285; A9270-GY; C1721; C1895; C1898; C8929; J0690; J1644; J2250; J3010

== ENCOUNTER 2017-10-23 01:23 | Emergency (ER) | payer OTHER ==
--- OUTSIDE RECORDS SUMMARY | 2017-10-23 01:33 | XMS REPORT ---
:1965 External Reference #:[id number] Author Organization Funding Profiles Address [address] [facility] [place] [address] Phone [phone] Care Team Providers Name Role Phone Cathy Flores MD Primary Care Physician Unavailable Payers Type Date Identification Numbers Payment Provider Subscriber Commercial Effective: Policy Number: [id number] [employer] Leda Bhat 2014 Medicaid PayID: [id number] [address] [address] [place] [address] Commercial Effective: 2011 Policy Number: [id number] Rico Bhat Expires: 2014 Group Name: [id number] [address] PayID: [id number] [place] [address] Medigap Part B Effective: 2010 Policy Number: [id number] Medicaid eLda Bhat Expires: 2011 PayID: [id number] [address] [place] [address] Problems Date Description Provider Status Onset: 01/03/2011 Sarcoidosis Cathy Flores M.D. Active Onset: 01/03/2011 Osteochondropathy Cathy Flores M.D. Active Onset: 01/10/2011 Depressive disorder Cathy Flores M.D. Active Onset: 01/10/2011 Gastroesophageal reflux disease Cathy Flores M.D. Active Onset: 12/15/2011 Essential hypertension Velvet Sal N.PKristian Active Onset: 04/26/2014 Impaired fasting glycaemia Cathy Flores M.D. Active Note: Hba1c 6 Onset: 12/29/2015 Mixed hyperlipidemia Cathy Flores M.D. Active Onset: 12/29/2015 Obesity Cathy Flores M.D. Active Onset: 03/12/2017 Cardiac pacemaker in situ Cathy Flores M.D. 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, has had arthralgias and stopped working in 2008 ETOH Use Occasionally consumes alcohol 1-2 glasses of wine with company Smoking Patient is a former smoker Recreational Drug Use Denies Drug Use Daily Caffeine Consumes on average 8oz of iced tea per day Exercise Type/Frequency Does not exercise Sexual Hx text Allergies, Adverse Reactions, Alerts Date Description Reaction Status Severity Comments 01/03/2011 seasonal active Medications Medication Date Status Form Strength Qnty SIG Indications Ordering Provider Fluconazole 09/25/ Hx Tablets 100mg 10tab 1 tab by B37.2 Cathy 2018 - s mouth Mark, 10/05/ daily x M.D. 2018 10 days Clotrimazole/Be 09/25/ Active Cream 1-0.05% 90gm apply to B37.2 Cathy tamethasone 2018 affected Mark Dipropionate area on M.D. the affected areas twice a day x 10 days Chlorhexidine 03/16/ Active Solution 0.12% 236ml mouth Cathy Gluconate 2018 wash Mark daily M.DKristian Caltrate 600+D 11/30/ Active Tablets 600-800mg- 90tab once a Cathy 2016 s day Rishi Flores Acton-3 Fish 11/30/ Active Capsules DR 1000mg 90cap once a E78.2 Cathy Oil Concentrate 2016 s day Rishi Flores Atorvastatin 07/02/ Active Tablets 10mg 90tab Take 1 E78.2 Cathy Calcium 2013 s Tablet By Cristhian Flores M.DKristian Every Day Blood Pressure 04/25/ Active Kit 1unit once a I10 Cathy Kit Digital 2012 s day Rishi Flores Benzoyl 04/17/ Active Liquid 5% 1unit as needed Cathy Peroxide Wash 2011 s once a oracio Flores M.DKristian Losartan 04/17/ Active Tablets 100mg 90tab Take 1 I10 Cathy Potassium 2011 s Tablet By Flores, Mouth M.D. Every Day Loratadine 01/03/ Active Tablets 10mg 90tab Take 1 Cathy 2010 s Tablet By Flores, Mouth M.D. Every Day as Needed Amlodipine 01/03/ Active Tablets 10mg 90tab Take 1 Cathy Besylate 2010 s Tablet By Flores, Mouth M.D. Every Day Multi Vitamin / Active Tablets 1 by Unknown 0000 mouth every day Fluoxetine HCL / Active Capsules 20mg 1 by Unknown [address] Gasca Omeprazole / Active Capsules DR 20mg 90cap Take One Cathy s Capsule Mark, By Mouth M.D. Every Day as Needed Fluconazole 11/30/ Hx Tablets 100mg 5tabs 1 tab by B37.2 Cathy 2016 - mouth Mark, 12/05/ daily x 5 M.D. 2017 days Nystop 11/30/ Hx Powder [id number] 180gm apply to B37.2 Cathy 2016 - /GM affected Mark, 04/05/ area M.D. 2017 twice a day for 10 days as needed Acton-3 Fish 12/28/ Hx Capsules DR 1000mg 90cap once a E78.2 Cathy Oil Concentrate 2015 - day Mark, 11/30/ M.D. 2016 Pulmicort 04/28/ Hx Aerosol 90mcg/Act 1unit Inhale 2 Rito Flexazizaer 2015 - Puffs ETHAN Portillo 05/04/ Twice A 2015 Day Pulmicort 03/17/ Hx Aerosol 90mcg/Act 1unit 2 puff R05 Rito Flexazizaer 2015 - s twice a ETHAN Portillo 03/29/ day 2016 Azithromycin 03/17/ Hx Tablets 250mg 6tabs 2 tabs by [id number] Veras 2015 - mouth ETHAN Portillo 03/21/ every day 2016 x1 day, 1 tab by mouth every day x 4 days Fluoxetine HCL 10/03/ Hx Capsules 40mg 90cap 1 po qd Unknown 2012 - 2017 Triamcinolone 04/25/ Hx Cream 0.5% 1unit apply to 705.81 Cathy Acetonide 2012 - affected Mark, 11/30/ areas of M.D. 2016 L elbow bid prn Metoprolol 11/14/ Hx Tablets 50mg 180ta Take 1 I10 Cathy Tartrate 2011 Tablet By Mark, 03/06/ Mouth M.D. 2017 Twice A Day Metrogel-Vagina 10/04/ Hx Gel 0.75% 1unit apply Cathy l 2011 once a Mark, 11/14/ day x 7 M.D. 2011 days Citalopram 08/23/ Hx Tablets 20mg 90tab 1 po qd 311 Cathy Hydrobromide 2011 Mark, 11/07/ M.D. 2013 Ferrous 08/23/ Hx 325mg 90uni Take 1 281.9 Cathy Gluconate 2011 Tablet By Mark, 04/25/ Mouth M.D. 2012 Every Day Citalopram 07/25/ Hx Tablets 10mg 30tab 1 po qd 311 Cathy Hydrobromide 2011 Mark, 08/23/ M.D. 2011 Anucort-HC 04/17/ Hx Suppository 25mg 5unit apply 455.2 Cathy 2011 once a Mark, 04/20/ day X 5 M.D. 2011 days Sertraline HCL 03/15/ Hx Tablets 50mg 90tab 1 po qd Cathy 2011 Mark, 07/25/ M.D. 2012 Losartan 03/15/ Hx Tablets 50mg 30tab 1 po qd 401.9 Cathy Potassium 2011 Mark, 06/13/ M.D. 2011 Sertraline HCL 01/10/ Hx Tablets 25mg 30tab 1 tab by 401.9 Cathy 2010 mouth Mark, 03/15/ every day M.D. 2012 Diovan 01/10/ Hx Tablets 80mg 30tab 1 tab by 401.9 Cathy 2010 mouth Flores, 06/13/ every day M.D. 2011 Micardis 01/03/ Hx Tablets 80mg 90tab 1 tab by Cathy 2010 mouth Mark, 01/10/ every day M.D. 2010 Metoprolol 01/03/ Hx Tablets 25mg 60tab 1 tab by Cathy Tartrate 2010 mouth Mark, 12/14/ twice a M.D. 2011 day Omeprazole 01/03/ Hx Capsules DR 20mg 90cap 1 tab by Cathy 2010 mouth Mark, 04/17/ every day M.D. 2011 Alendronate 01/03/ Hx Tablets 35mg 12tab 1 tab by Cathy Sodium 2010 mouth Mark, 07/02/ every M.D. 2013 week Metoprolol / Hx Tablets 25mg 60tab 1 po bid Cathy Tartrate - s Flores, 01/03/ M.D. 2010 Amlodipine / Hx Capsules 10-20mg 90cap 1 po qd Unknown Besylate/Benaze 0000 - s pril 01/03/ Hydrochloride 2010 Micardis / Hx Tablets 20mg 30tab 1 po qd Unknown 0000 - s 2010 Loratadine / Hx Tablets 10mg 30tab 1 po qd Unknown 0000 - s 2011 Nasonex / Hx Suspension 50mcg/Act 1unit 2 sprays Unknown 0000 - s to each 11/14/ nostril 2011 twice daily prn Alendronate / Hx Tablets 35mg 1 tab by Unknown Sodium 0000 - mouth 03/15/ 2011 week Caltrate 600+D / Hx Chewtabs 600-400mg- 90uni not Cathy 0000 - Unit ts taking Mark, 11/30/ M.D. 2016 Simvastatin / Hx Tablets 5mg 90tab 1 po qd 272.2 Cathy 0000 - s Mark, 07/02/ M.D. 2013 Aspirin Ec / Hx Tablets DR 81mg 90tab take 1 Cathy 0000 - s tablet by Mark, 01/25/ mouth M.D. 2013 every day Omeprazole / Hx Capsules DR 20mg 90cap take one Cathy 0000 - s capsule Mark, 04/05/ by mouth M.D. 2017 every day as needed Immunizations CPT Code Status Date Vaccine Lot # [id number] Given 05/12/2008 Measles Mumps And Rubella MMR [id number] Given Unknown Influenza Virus 3Yrs & Over [id number] Refused 11/30/2016 Influenza Virus Vaccine, Quadrivalent, Split, Preservative Free [id number] Refused 12/29/2015 Influenza Virus Vaccine, Quadrivalent, Split, Preservative Free [id number] Refused 12/15/2011 Fluzone Vaccine Vital Signs Date Vital Result Comment 09/25/2017 Height 63 inches 5'3" Weight 199.00 lb Heart Rate 60 /min BP Systolic Sitting 120 mmHg BP Diastolic Sitting 60 mmHg O2 % BldC Oximetry 99 % BMI (Body Mass Index) 35.2 kg/m2 06/22/2017 Height 63 inches 5'3" Weight 212.00 lb w/o shoes Heart Rate 64 /min BP Systolic Sitting 126 mmHg Lue BP Diastolic Sitting 84 mmHg Lue BP Systolic Standing 120 mmHg Lue BP Diastolic Standing 80 mmHg Lue Respiratory Rate 14 /min BMI (Body Mass Index) 37.6 kg/m2 Ejection Fraction 60-65% as of 02/2017 echo 04/11/2017 Height 63 inches 5'3" Weight 209.00 lb without shoes Heart Rate 68 /min BP Systolic Sitting 138 mmHg Rue lg cuff BP Diastolic Sitting 78 mmHg Rue lg cuff BP Systolic Standing 136 mmHg Rue lg cuff BP Diastolic Standing 74 mmHg Rue lg cuff Respiratory Rate 16 /min BMI (Body Mass Index) 37.0 kg/m2 Ejection Fraction 60-65% date 03/06/17 ECHO 04/05/2017 Weight 210.00 lb Heart Rate 65 /min BP Systolic Sitting 128 mmHg BP Diastolic Sitting 78 mmHg O2 % BldC Oximetry 97 % 03/13/2017 Height 62.5 inches 5'2.50" Weight 208.00 lb w/ shoes Heart Rate 68 /min BP Systolic Sitting 132 mmHg rue reg cuff BP Diastolic Sitting 78 mmHg rue reg cuff Respiratory Rate 18 /min BMI (Body Mass Index) 37.4 kg/m2 Ejection Fraction 60-65% echo 03/06/17 03/12/2017 Height 62.5 inches 5'2.50" Weight 206.00 lb Heart Rate 61 /min BP Systolic Sitting 126 mmHg BP Diastolic Sitting 68 mmHg Respiratory Rate 14 /min O2 % BldC Oximetry 98 % BMI (Body Mass Index) 37.1 kg/m2 11/30/2016 Height 62.5 inches 5'2.50" Weight 204.00 lb Heart Rate 48 /min BP Systolic Sitting 158 mmHg BP Diastolic Sitting 90 mmHg Body Temperature 96.5 F O2 % BldC Oximetry 98 % BMI (Body Mass Index) 36.7 kg/m2 05/01/2016 Weight 196.00 lb Heart Rate 66 /min BP Systolic Sitting 128 mmHg BP Diastolic Sitting 80 mmHg Respiratory Rate 15 /min Body Temperature 98.0 F O2 % BldC Oximetry 98 % 12/29/2015 Weight 211.00 lb Heart Rate 48 /min BP Systolic Sitting 126 mmHg BP Diastolic Sitting 68 mmHg Body Temperature 97.5 F O2 % BldC Oximetry 98 % 06/28/2015 Height 63 inches 5'3" Weight 212.00 lb Heart Rate 57 /min BP Systolic Sitting 128 mmHg BP Diastolic Sitting 71 mmHg Body Temperature 97.9 F BMI (Body Mass Index) 37.6 kg/m2 03/17/2015 Weight 214.00 lb Heart Rate 60 /min BP Systolic Sitting 124 mmHg BP Diastolic Sitting 82 mmHg Body Temperature 98.6 F O2 % BldC Oximetry 97 % 11/02/2014 Weight 208.25 lb Heart Rate 55 /min BP Systolic Sitting 146 mmHg BP Diastolic Sitting 81 mmHg O2 % BldC Oximetry 99 % 04/22/2014 Height 64 inches 5'4" Weight 203.00 lb Heart Rate 56 /min BP Systolic 121 mmHg BP Diastolic 70 mmHg Body Temperature 97.8 F BMI (Body Mass Index) 34.8 kg/m2 09/09/2013 Weight 208.00 lb Heart Rate 78 /min BP Systolic Sitting 120 mmHg BP Diastolic Sitting 74 mmHg 07/02/2013 Weight 208.00 lb Heart Rate 50 /min BP Systolic Sitting 132 mmHg BP Diastolic Sitting 84 mmHg 01/07/2013 Weight 205.50 lb Heart Rate 49 /min BP Systolic Sitting 128 mmHg (per Zach RN) BP Diastolic Sitting 74 mmHg (per Zach RN) 11/11/2012 Weight 203.00 lb Heart Rate 64 /min BP Systolic Sitting 192 mmHg BP Diastolic Sitting 96 mmHg 07/16/2012 Weight 196.75 lb Heart Rate 51 /min BP Systolic Sitting 139 mmHg BP Diastolic Sitting 86 mmHg 05/14/2012 Height 63 inches 5'3" Weight 194.00 lb Heart Rate 54 /min BP Systolic Sitting 138 mmHg BP Diastolic Sitting 80 mmHg BMI (Body Mass Index) 34.4 kg/m2 04/25/2012 Height 63 inches 5'3" Weight 199.00 lb Heart Rate 76 /min BP Systolic Sitting 170 mmHg BP Diastolic Sitting 100 mmHg BMI (Body Mass Index) 35.2 kg/m2 12/15/2011 Height 63 inches 5'3" Weight 177.00 lb Heart Rate 78 /min BP Systolic Sitting 148 mmHg BP Diastolic Sitting 82 mmHg BMI (Body Mass Index) 31.4 kg/m2 11/15/2011 Height 63.50 inches 5'3.50" Weight 178.00 lb Heart Rate 88 /min BP Systolic Sitting 140 mmHg BP Diastolic Sitting 90 mmHg BMI (Body Mass Index) 31.0 kg/m2 10/04/2011 Height 63.50 inches 5'3.50" Weight 175.00 lb Heart Rate 68 /min BP Systolic Sitting 174 mmHg BP Diastolic Sitting 92 mmHg BMI (Body Mass Index) 30.5 kg/m2 08/24/2011 Height 63.50 inches 5'3.50" Weight 170.00 lb Heart Rate 78 /min BP Systolic Sitting 132 mmHg l BP Diastolic Sitting 80 mmHg l BMI (Body Mass Index) 29.6 kg/m2 07/26/2011 Height 63.50 inches 5'3.50" Weight 169.00 lb Heart Rate 88 /min BP Systolic Sitting 120 mmHg BP Diastolic Sitting 92 mmHg BMI (Body Mass Index) 29.5 kg/m2 06/14/2011 Height 63.50 inches 5'3.50" Weight 171.00 lb Heart Rate 76 /min BP Systolic Sitting 162 mmHg BP Diastolic Sitting 90 mmHg BMI (Body Mass Index) 29.8 kg/m2 04/17/2011 Height 63.50 inches 5'3.50" Weight 173.00 lb Heart Rate 84 /min BP Systolic Sitting 164 mmHg BP Diastolic Sitting 90 mmHg BMI (Body Mass Index) 30.2 kg/m2 03/15/2011 Height 63.50 inches 5'3.50" Weight 178.00 lb Heart Rate 68 /min BP Systolic Sitting 118 mmHg l BP Diastolic Sitting 68 mmHg l BMI (Body Mass Index) 31.0 kg/m2 01/10/2011 Height 63 inches 5'3" Weight 173.00 lb Heart Rate 76 /min BP Systolic Sitting 155 mmHg BP Diastolic Sitting 100 mmHg BMI (Body Mass Index) 30.6 kg/m2 01/03/2011 Height 63 inches 5'3" Weight 177.00 lb Heart Rate 80 /min BP Systolic 160 mmHg After 1 hr BP Diastolic 105 mmHg After 1 hr BP Systolic Sitting 190 mmHg BP Diastolic Sitting 130 mmHg BMI (Body Mass Index) 31.4 kg/m2 Results Test Date Test Result H/L Range Note Laboratory test finding 03/05/2017 Potassium Redraw 4.3 mmol/L 3.5-5.0 Magnesium 2.0 mg/dL 1.9-2.7 Ast Redraw 25 U/L 13-39 CBC Auto Diff 03/05/2017 White Blood Count 5.3 10^3/uL 3.5-10.8 Red Blood Count 3.89 10^6/uL Low 4.0-5.4 Hemoglobin 11.3 g/dL Low 12.0-16.0 Hematocrit 34 % Low 35-47 Mean Corpuscular Volume 88 fL 80-97 Mean Corpuscular Hemoglobin 29 pg 27-31 Mean Corpuscular HGB Conc 33 g/dL 31-36 Red Cell Distribution Width 15 % 10.5-15 Platelet Count 243 10^3/uL 150-450 Mean Platelet Volume 9 um3 7.4-10.4 Abs Neutrophils 3.6 10^3/uL 1.5-7.7 Abs Lymphocytes 1.2 10^3/uL 1.0-4.8 Abs Monocytes 0.5 10^3/uL 0-0.8 Abs Eosinophils 0 10^3/uL 0-0.6 Abs Basophils 0 10^3/uL 0-0.2 Abs Nucleated RBC 0 10^3/uL Granulocyte % 68.0 % 38-83 Lymphocyte % 22.1 % Low 25-47 Monocyte % 8.9 % 1-9 Eosinophil % 0.5 % 0-6 Basophil % 0.5 % 0-2 Nucleated Red Blood Cells % 0.1 Laboratory test finding 03/05/2017 Lactic Acid 1.0 mmol/L 0.5-2.0 1 Troponin-I (TnI) 0.01 ng/mL <0.04 2 Comp Metabolic Panel 03/05/2017 Sodium 132 mmol/L Low 133-145 Chloride 102 mmol/L 101-111 Co2 Carbon Dioxide 22 mmol/L 22-32 Glucose 109 mg/dL High 70-100 Blood Urea Nitrogen 17 mg/dL 6-24 Creatinine 1.16 mg/dL High 0.51-0.95 BUN/Creatinine Ratio 14.7 8-20 Calcium 9.7 mg/dL 8.6-10.3 Total Protein 7.8 g/dL 6.4-8.9 Albumin 4.1 g/dL 3.2-5.2 Globulin 3.7 g/dL 2-4 Albumin/Globulin Ratio 1.1 1-3 Total Bilirubin 0.40 mg/dL 0.2-1.0 Alkaline Phosphatase 79 U/L 34-104 Alt 22 U/L 7-52 Egfr Non- 49.1 >60 Egfr 63.1 >60 3 Potassium TNP mmol/L 3.5-5.0 Anion Gap 8 mmol/L 2-11 Ast TNP U/L 13-39 Laboratory test finding 03/05/2017 Magnesium TNP mg/dL 1.9-2.7 4 TSH (Thyroid Stim Horm) 2.48 mcIU/mL 0.34-5.60 5 Laboratory test finding 11/30/2016 Hemoglobin A1c 5.8 5-7 Iron & Iron Binding Capacity 04/27/2016 Iron 62 g/dL 50-212 Unsaturated Iron Binding 270 g/dL Total Iron Binding Capacity 332 g/dL 250-450 % Iron Saturation 19 % 15-55 Laboratory test finding 04/27/2016 Ferritin 97.6 ng/mL 11-307 LDH 137 U/L Low 140-271 Protein Electrophoresis 04/27/2016 Total Protein(Pep) 7.9 g/dL 6.3 - 7.9 Albumin 3.6 g/dL 3.4-4.7 Alpha-1 Globulin 0.2 g/dL 0.1-0.3 Alpha-2 Globulin 1.0 g/dL 0.6-1.0 Beta Globulin 1.3 g/dL 0.7-1.2 Gamma Globulin 1.8 g/dL 0.6-1.6 Albumin/Globulin Ratio 0.82 Impression See Comment 6 HIV 1/2 AB Evaluation 04/27/2016 HIV 1 2 Antibody Nonreactive Nonreactive 7 Laboratory test 04/27/2016 TSH (Thyroid Stim Horm) 1.91 mcIU/mL 0.34- 5.60 finding Lipid Profile 04/17/2016 Triglycerides 241 mg/dL 8 (Trig/Chol/HDL) Cholesterol 175 mg/dL 9 HDL Cholesterol 44.8 mg/dL 10 LDL Cholesterol 82 mg/dL 11 CBC Auto Diff 04/17/2016 White Blood Count 4.5 10^3/uL 3.5-10.8 Red Blood Count 3.98 10^6/uL Low 4.0-5.4 Hemoglobin 11.4 g/dL Low 12.0-16.0 Hematocrit 34 % Low 35-47 Mean Corpuscular Volume 86 fL 80-97 Mean Corpuscular Hemoglobin 29 pg 27-31 Mean Corpuscular HGB Conc 33 g/dL 31-36 Red Cell Distribution Width 14 % 10.5-15 Platelet Count 260 10^3/uL 150-450 Mean Platelet Volume 9 um3 7.4-10.4 Abs Neutrophils 2.8 10^3/uL 1.5-7.7 Abs Lymphocytes 1.1 10^3/uL 1.0-4.8 Abs Monocytes 0.4 10^3/uL 0-0.8 Abs Eosinophils 0.1 10^3/uL 0-0.6 Abs Basophils 0 10^3/uL 0-0.2 Abs Nucleated RBC 0 10^3/uL Granulocyte % 62.3 % 38-83 Lymphocyte % 24.5 % Low 25-47 Monocyte % 9.8 % High 1-9 Eosinophil % 2.8 % 0-6 Basophil % 0.6 % 0-2 Nucleated Red Blood Cells % 0 Basic Metabolic Panel 03/23/2016 Sodium 138 mmol/L 133-145 Potassium 4.5 mmol/L 3.5-5.0 Chloride 104 mmol/L 101-111 Co2 Carbon Dioxide 27 mmol/L 22-32 Anion Gap 7 mmol/L 2-11 Glucose 118 mg/dL High 70-100 Blood Urea Nitrogen 19 mg/dL 6-24 Creatinine 1.34 mg/dL High 0.51-0.95 BUN/Creatinine Ratio 14.2 8-20 Calcium 9.8 mg/dL 8.6-10.3 Egfr Non- 41.7 >60 Egfr 53.6 >60 12 Comp Metabolic Panel 12/27/2015 Sodium 136 mmol/L 133-145 Potassium 4.1 mmol/L 3.5-5.0 Chloride 104 mmol/L 101-111 Co2 Carbon Dioxide 24 mmol/L 22-32 Anion Gap 8 mmol/L 2-11 Glucose 94 mg/dL 70-100 Blood Urea Nitrogen 10 mg/dL 6-24 Creatinine 0.87 mg/dL 0.51-0.95 BUN/Creatinine Ratio 11.5 8-20 Calcium 9.6 mg/dL 8.6-10.3 Total Protein 7.8 g/dL 6.4-8.9 Albumin 4.1 g/dL 3.2-5.2 Globulin 3.7 g/dL 2-4 Albumin/Globulin Ratio 1.1 1-3 Total Bilirubin 0.40 mg/dL 0.2-1.0 Alkaline Phosphatase 79 U/L 34-104 Alt 13 U/L 7-52 Ast 20 U/L 13-39 Egfr Non- 68.9 >60 Egfr 88.6 >60 13 Laboratory test 12/27/2015 Hemoglobin A1c (Glyco 5.5 % Less than 6.0 14 finding HGB) Lipid Profile 12/27/2015 Triglycerides 290 mg/dL 15 (Trig/Chol/HDL) Cholesterol 229 mg/dL 16 HDL Cholesterol 51.0 mg/dL 17 LDL Cholesterol 120 mg/dL 18 Laboratory test finding 06/28/2015 Cytology SEE RESULT BELOW 19 Laboratory test finding 11/02/2014 Hemoglobin A1c 5.9 5-7 Laboratory test finding 04/22/2014 Cytology RUN DATE: 04/23/ <SEE 20 NOTE> HPV Rna W/ Reflex Genotype Negative Negative 21 Comp Metabolic Panel 04/22/2014 Sodium 137 mmol/L 133-145 Potassium 4.3 mmol/L 3.5-5.0 Chloride 102 mmol/L 101-111 Co2 Carbon Dioxide 29 mmol/L 22-32 Anion Gap 6 mmol/L 2-11 Glucose 100 mg/dL 70-100 Blood Urea Nitrogen 17 mg/dL 6-24 Creatinine 1.21 mg/dL High 0.51-0.95 BUN/Creatinine Ratio 14.0 8-20 Calcium 10.3 mg/dL 8.6-10.3 Total Protein 8.2 g/dL 6.4-8.9 Albumin 4.5 g/dL 3.2-5.2 Globulin 3.7 g/dL 2-4 Albumin/Globulin Ratio 1.2 1-3 Total Bilirubin 0.40 mg/dL 0.2-1.0 Alkaline Phosphatase 121 U/L High 34-104 Alt 30 U/L 7-52 Ast 34 U/L 13-39 Egfr Non- 47.3 >60 Egfr 60.8 >60 22 Laboratory test finding 04/22/2014 Hemoglobin A1c 6.0 % Less than 6.0 23 CBC Auto Diff 04/22/2014 White Blood Count 6.0 10^3/uL 4.8-10.8 Red Blood Count 4.08 10^6/uL 4.0-5.4 Hemoglobin 11.8 g/dL Low 12.0-16.0 Hematocrit 35 % 35-47 Mean Corpuscular Volume 86 fL 80-97 Mean Corpuscular Hemoglobin 29 pg 27-31 Mean Corpuscular HGB Conc 34 g/dL 31-36 Red Cell Distribution Width 15 % 10.5-15 Platelet Count 323 10^3/uL 150-450 Mean Platelet Volume 9 um3 7.4-10.4 Abs Neutrophils 3.7 10^3/uL 1.5-7.7 Abs Lymphocytes 1.6 10^3/uL 1.0-4.8 Abs Monocytes 0.5 10^3/uL 0-0.8 Abs Eosinophils 0.1 10^3/uL 0-0.6 Abs Basophils 0 10^3/uL 0-0.2 Abs Nucleated RBC 0.01 10^3/uL Granulocyte % 61.2 % 38-83 Lymphocyte % 27.3 % 25-47 Monocyte % 8.9 % 1-9 Eosinophil % 1.9 % 0-6 Basophil % 0.7 % 0-2 Nucleated Red Blood Cells % 0.1 Comp Metabolic Panel 06/06/2013 Sodium 136 mmol/L 133-145 24 Potassium 4.3 mmol/L 3.7-5.6 24 Chloride 103 mmol/L 101-111 24 Co2 Carbon Dioxide 28 mmol/L 22-32 24 Anion Gap 5 mmol/L 2-11 24 Glucose 107 mg/dL High 70-100 24 Blood Urea Nitrogen 13 mg/dL 6-24 24 Creatinine 0.99 mg/dL High 0.51-0.95 24 BUN/Creatinine Ratio 13.1 8-20 24 Calcium 9.0 mg/dL 8.6-10.3 24 Total Protein 7.0 g/dL 6.4-8.9 24 Albumin 3.9 g/dL 3.2-5.2 24 Globulin 3.1 g/dL 2-4 24 Albumin/Globulin Ratio 1.3 1-3 24 Total Bilirubin 0.40 mg/dL 0.2-1.0 24 Alkaline Phosphatase 112 U/L High 34-104 24 Alt 21 U/L 7-52 24 Ast 28 U/L 13-39 24 Egfr Non- 59.9 >60 24 Egfr 77.0 >60 24, 25 Laboratory test finding 06/06/2013 Hemoglobin A1c 5.7 % Less than 6.0 24 , 26 Lipid Profile 06/06/2013 Triglycerides 175 mg/dL 24, 27 (Trig/Chol/HDL) Cholesterol 196 mg/dL 24, 28 HDL Cholesterol 46.8 mg/dL 24, 29 LDL Cholesterol 114 mg/dL 24, 30 Comp Metabolic Panel 11/19/2012 Sodium 138 mmol/L 133-145 Potassium 4.1 mmol/L 3.5-5.0 Chloride 104 mmol/L 101-111 Co2 Carbon Dioxide 28.0 mmol/L 22-32 Anion Gap 6.0 mmol/L 2-11 Glucose 106 mg/dL High 70-100 Blood Urea Nitrogen 14 mg/dL 6-24 Creatinine 1.00 mg/dL 0.50-1.40 BUN/Creatinine Ratio 14.0 8-20 Calcium 9.9 mg/dL 8.1-9.9 Total Protein 7.7 g/dL 6.2-8.1 Albumin 3.7 g/dL 3.6-5.4 Globulin 4.0 g/dL 2-4 Albumin/Globulin Ratio 0.9 Low 1-3 Total Bilirubin 0.7 mg/dL 0.4-1.5 Alkaline Phosphatase 97 U/L 30-110 Alt 27 U/L 14-54 Ast 33 U/L 12-42 Egfr Non- 59.4 >60 Egfr 76.4 >60 31 Pthi 11/19/2012 PTH Intact 9.3 pmol/L High 1.3-9.0 Calcium (PTH Intact) 9.9 mg/dL 8.1-9.9 Vitamin D, 25 Hydroxy 11/19/2012 25-Hydroxy Vitamin D2 <4.0 ng/mL 25-Hydroxy Vitamin D3 34 ng/mL 25-Hydroxy Vitamin D Total 34 ng/mL 32 HIV 1/2 AB Evaluation 05/07/2012 HIV 1 2 Antibody Nonreactive Nonreactive 33 Comp Metabolic Panel 05/07/2012 Sodium 136 mmol/L 133-145 Potassium 4.0 mmol/L 3.5-5.0 Chloride 103 mmol/L 101-111 Co2 Carbon Dioxide 26.0 mmol/L 22-32 Anion Gap 7.0 mmol/L 2-11 Glucose 85 mg/dL 70-100 Blood Urea Nitrogen 8 mg/dL 6-24 Creatinine 1.00 mg/dL 0.50-1.40 BUN/Creatinine Ratio 8.0 8-20 Calcium 9.5 mg/dL 8.1-9.9 Total Protein 6.8 g/dL 6.2-8.1 Albumin 3.7 g/dL 3.6-5.4 Globulin 3.1 g/dL 2-4 Albumin/Globulin Ratio 1.2 1-3 Total Bilirubin 0.6 mg/dL 0.4-1.5 Alkaline Phosphatase 116 U/L High 30-110 Alt 27 U/L 14-54 Ast 35 U/L 12-42 Egfr Non- 59.4 >60 Egfr 76.4 >60 34 Lipid Profile (Trig/Chol/HDL) 05/07/2012 Triglycerides 205 mg/dL High 40- 200 Cholesterol 225 mg/dL High Less than 200 HDL Cholesterol 65 mg/dL High 40-60 35 Cholesterol/HDL Ratio 3.5 Average 1-4.44 LDL Cholesterol 119.0 mg/dL High Less Than 100 36 CBC Auto Diff 05/07/2012 White Blood Count 5.2 10^3/uL 4.8-10.8 Red Blood Count 3.86 10^6/uL Low 4.0-5.4 Hemoglobin 11.3 g/dL Low 12.0-16.0 Hematocrit 34 % Low 35-47 Mean Corpuscular Volume 88 fL 80-97 Mean Corpuscular Hemoglobin 29 pg 27-31 Mean Corpuscular HGB Conc 33 g/dL 31-36 Red Cell Distribution Width 14 % 10.5-15 Platelet Count 255 10^3/uL 150-450 Mean Platelet Volume 9 um3 7.4-10.4 Abs Neutrophils 3.6 10^3/uL 1.5-7.7 Abs Lymphocytes 1.1 10^3/uL 1.0-4.8 Abs Monocytes 0.4 10^3/uL 0-0.8 Abs Eosinophils 0.1 10^3/uL 0-0.6 Abs Basophils 0 10^3/uL 0-0.2 Abs Nucleated RBC 0 10^3/uL Granulocyte % 69.9 % 38-83 Lymphocyte % 20.3 % Low 25-47 Monocyte % 8.2 % 1-9 Eosinophil % 1.2 % 0-6 Basophil % 0.4 % 0-2 Nucleated Red Blood Cells % 0.1 Liver Function Panel 11/06/2011 Total Protein 7.1 GM/DL 6.2-8.1 Albumin 4.1 GM/DL 3.6-5.4 Globulin 3.0 GM/DL 2-4 Albumin/Globulin Ratio 1.4 1-3 Bilirubin Total 1.3 mg/dL 0.4-1.5 37 Bilirubin Direct 0.3 mg/dL 0.1-0.5 Indirect Bilirubin 1.0 mg/dL 0.3-1.0 38 Alkaline Phosphatase 162 U/L High 30-110 Alt (SGPT) 24 U/L 14-54 Ast (Sgot) 38 U/L 12-42 Ua Routine 10/04/2011 Ua Specific [place] 1.005 Ua PH 5.0 Ua Color yellow Ua Appera clear Ua WBC neg Ua Protein 20 Ua Glucose neg Ua Ketones neg Ua Bilirubin neg Ua Urobilinogen neg Ua Nitrite neg Ua Occult Blood neg Vaginal Dna Probe 10/04/2011 M <SEE NOTE> 39 Comp Metabolic Panel 09/20/2011 Sodium 137 mmol/L 135-145 Potassium 3.5 mmol/L 3.5-5.0 Chloride 103 mmol/L 101-111 Co2 (Carbon Dioxide) 29.0 mmol/L 22-32 Anion Gap 5.0 mmol/L 2-11 40 Glucose 89 mg/dL 70-100 BUN 8 mg/dL 6-24 Creatinine 0.9 mg/dL 0.50-1.40 One Over Creatinine 1.11 BUN/Creatinine Ratio 8.9 8-20 Calcium 9.3 mg/dL 8.1-9.9 Total Protein 6.7 GM/DL 6.2-8.1 Albumin 3.6 GM/DL 3.6-5.4 Globulin 3.1 GM/DL 2-4 Albumin/Globulin Ratio 1.2 1-3 Bilirubin Total 0.6 mg/dL 0.4-1.5 41 Alkaline Phosphatase 130 U/L High 30-110 Alt (SGPT) 33 U/L 14-54 Ast (Sgot) 42 U/L 12-42 eGFR Non- 67.4 > 60 eGFR 86.7 > 60 42 Laboratory test finding 09/20/2011 Folic Acid 17.9 NG/ML See Below 43 Methylmalonic Acid 0.10 nmol/mL <=0.40 44 Liver Function Panel 07/26/2011 Total Protein 7.3 GM/DL 6.2-8.1 Albumin 3.8 GM/DL 3.6-5.4 Globulin 3.5 GM/DL 2-4 Albumin/Globulin Ratio 1.1 1-3 Bilirubin Total 0.6 mg/dL 0.4-1.5 45 Bilirubin Direct 0.1 mg/dL 0.1-0.5 Indirect Bilirubin 0.5 mg/dL 0.3-1.0 46 Alkaline Phosphatase 141 U/L High 30-110 Alt (SGPT) 36 U/L 14-54 Ast (Sgot) 44 U/L High 12-42 PTH Intact, Inc Total Calcium 07/26/2011 PTH Intact 8.5 PMOL/L 1.3-9.3 Calcium For Pthi 9.3 mg/dL 8.1-9.9 47 Basic Metabolic Panel 07/26/2011 Sodium 134 mmol/L Low 135-145 Potassium 4.1 mmol/L 3.5-5.0 Chloride 102 mmol/L 101-111 Co2 (Carbon Dioxide) 26.0 mmol/L 22-32 Anion Gap 6.0 mmol/L 2-11 48 Glucose 91 mg/dL 70-100 BUN 8 mg/dL 6-24 Creatinine 0.9 mg/dL 0.50-1.40 One Over Creatinine 1.11 BUN/Creatinine Ratio 8.9 8-20 Calcium 9.2 mg/dL 8.1-9.9 eGFR Non- 67.4 > 60 eGFR 86.7 > 60 49 Laboratory test finding 07/26/2011 Angiotensin Converting Enzyme 48 U/L 8 - 53 50 Vitamin B12 319 pg/mL 180-914 CBC Auto Diff 07/26/2011 White Blood Count 4.2 CUMM Low 4.8-10.8 Red Cell Count 3.89 CUMM Low 4.2-5.4 Hemoglobin 11.7 g/dL Low 12.0-16.0 Hematocrit 33 % Low 35-47 Mean Corpuscular Volume 86 um3 79-97 Mean Corpuscular Hemoglob 30 pg 27-31 Mean Corpuscular HGB Cone 35 g/dL 32-36 Redcell Distribution WDTH 14 % 10.5-15 Platelet Count 281 CUMM 150-450 Mean Platelet Volume 8.6 um3 7.4-10.4 Absolute Neutrophil Count 3.3 1.5-7.7 51 Laboratory test finding 07/26/2011 TSH 1.57 MIU/ML 0.34-5.60 Manual Differential 07/26/2011 Polysegmented Neutrophil 78 % 38-83 Lymphocyte 15 % Low 25-47 Monocyte 4 % 0-13 Eosinophil 1 % 0-6 Basophil 2 % 0-2 Anisocytosis SLIGHT Hypochromasia SLIGHT Laboratory test 07/26/2011 Cytology <SEE 52 finding NOTE> Liver Function Panel 06/07/2011 Total Protein 7.5 GM/DL 6.2-8.1 Albumin 4.1 GM/DL 3.6-5.4 Globulin 3.4 GM/DL 2-4 Albumin/Globulin Ratio 1.2 1-3 Bilirubin Total 0.4 mg/dL 0.4-1.5 53 Bilirubin Direct 0.1 mg/dL 0.1-0.5 Indirect Bilirubin 0.3 mg/dL 0.3-1.0 54 Alkaline Phosphatase 155 U/L High 30-110 Alt (SGPT) 32 U/L 14-54 Ast (Sgot) 40 U/L 12-42 Laboratory test finding 06/07/2011 GGTP 330 U/L High 7-50 Vitamin D, 25 Hydroxy 04/10/2011 25-Hydroxy Vitamin D2 <4.0 ng/mL () 55 25-Hydroxy Vitamin D3 27 ng/mL () 55 25-Hydroxy Vitamin D Total 27 ng/mL () 55, 56 Vitamin D 1,25 And 04/10/2011 Vitamin D, 1,25 106 pg/mL 18-78 55, 57 Vitamin D,2 Dihydroxy Laboratory test 04/10/2011 TSH 4.82 MIU/ML 0.34-5.60 55 finding Lipid Profile 04/10/2011 Triglyceride 287 mg/dL 40-200 55 (Trig/Chol/HDL) Cholesterol 283 mg/dL Less Than 200 55, 58 High Density Lipoprotein 46 mg/dL 40-60 55, 59 Cholesterol/HDL Ratio 6.15 AVERAGE High 1-4.44 55 Low Density Lipoprotein 180 mg/dL Less Than 100 55, 60 Comp Metabolic Panel 04/10/2011 Sodium 139 mmol/L 135-145 55 Potassium 4.3 mmol/L 3.5-5.0 55 Chloride 103 mmol/L 101-111 55 Co2 (Carbon Dioxide) 27.0 mmol/L 22-32 55 Anion Gap 9.0 mmol/L 2-11 55, 61 Glucose 107 mg/dL High 70-100 55 BUN 10 mg/dL 6-24 55 Creatinine 1.1 mg/dL 0.50-1.40 55 One Over Creatinine 0.90 55 BUN/Creatinine Ratio 9.1 8-20 55 Calcium 10.1 mg/dL High 8.1-9.9 55 Total Protein 7.6 GM/DL 6.2-8.1 55 Albumin 4.1 GM/DL 3.6-5.4 55 Globulin 3.5 GM/DL 2-4 55 Albumin/Globulin Ratio 1.2 1-3 55 Bilirubin Total 0.6 mg/dL 0.4-1.5 55, 62 Alkaline Phosphatase 180 U/L 30-110 55 Alt (SGPT) 30 U/L 14-54 55 Ast (Sgot) 47 U/L 12-42 55 eGFR Non- 53.5 > 60 55 eGFR 68.8 > 60 55, 63 CBC Auto Diff 04/10/2011 White Blood Count 3.9 CUMM Low 4.8-10.8 55 Red Cell Count 4.17 CUMM Low 4.2-5.4 55 Hemoglobin 12.6 g/dL 12.0-16.0 55 Hematocrit 36 % 35-47 55 Mean Corpuscular Volume 85 um3 79-97 55 Mean Corpuscular Hemoglob 30 pg 27-31 55 Mean Corpuscular HGB Cone 35 g/dL 32-36 55 Redcell Distribution WDTH 15 % 10.5-15 55 Platelet Count 316 CUMM 150-450 55 Mean Platelet Volume 8.8 um3 7.4-10.4 55 Gran % 56.7 % 38-83 55 Lymph % 24.3 % Low 25-47 55 Mononuclear % 13.6 % High 1-9 55 Eosinophil % 4.8 % 0-6 55 Basophil % 0.6 % 0-2 55 Abs Lymphs 0.9 Low 1.0-4.8 55 Abs Mononuclear 0.5 0-0.8 55 Absolute Neutrophil Count 2.2 1.5-7.7 55 Abs Eosinophils 0.2 0-0.6 55 Abs Basophils 0 0-0.2 55 1 Specimen hemolyzed. Result may not be valid. [facility] Severe Sepsis and Septic Shock Management Bundle Measure requires all lactic acids initially measuring >2.0 mmol/L be repeated. 2 Cancelled. Specimen hemolyzed. Unable to perform test requested. Reorder for specimen recollection. [id number] was called for recollect at 1844 on 03/05/17 by [id number] 3 Because ethnic data is not always readily available, this report includes an eGFR for both -Americans and non- Americans. The National Kidney Disease Education Program (NKDEP) does not endorse the use of the MDRD equation for patients that are not between the ages of 18 and 70, are , have extremes of body size, muscle mass, or nutritional status, or are non- or non-. According to the National Kidney Foundation, irrespective of diagnosis, the stage of the disease is based on the level of kidney function: Stage Description GFR(mL/min/1.73 m(2)) 1 Kidney damage with normal or decreased GFR 90 2 Kidney damage with mild decrease in GFR 60-89 3 Moderate decrease in GFR 30-59 4 Severe decrease in GFR 15-29 5 Kidney failure <15 (or dialysis) 4 Cancelled. Specimen hemolyzed. Unable to perform test requested. Reorder for specimen recollection. [id number] was called for recollect at 1844 on 03/05/17 by [id number] 5 Cancelled. Specimen hemolyzed. Unable to perform test requested. Reorder for specimen recollection. [id number] was called for recollect at 1844 on 03/05/17 by [id number] RESULT: Polyclonal hypergammaglobulinemia Test Performed by: [address] [address] 7 It is recognized that currently available assays for the detection of antibodies to HIV-1 and/or HIV-2 may not detect all infected individuals. HIV antibodies may be undetectable in some stages of the infection and in some clinical conditions. The performance of this assay has not been established for populations of infants or children. Assayed by Chemiluminescence Microparticle Immunoassay on the Siemens Advia Centaur CP. Values obtained with different methods or kits cannot be used interchangeably.The diagnostic specificity of the ADVIA Centaur 1/O/2 Enhanced assay in the low risk population was 99.90% (6052/6058) with a 95% confidence interval of 99.78 to 99.96%. 8 Desirable <150 Borderline high 150-199 High 200-499 Very High >500 9 Desirable <200 Borderline high 200-239 High >239 10 Low <40 Desirable: 40-60 High: >60 11 Desirable: <100 mg/dL Near Optimal: 100-129 mg/dL Borderline High: 130-159 mg/dL High: 160-189 mg/dL Very High: >189 mg/dL 12 Because ethnic data is not always readily available, this report includes an eGFR for both -Americans and non- Americans. The National Kidney Disease Education Program (NKDEP) does not endorse the use of the MDRD equation for patients that are not between the ages of 18 and 70, are , have extremes of body size, muscle mass, or nutritional status, or are non- or non-. According to the National Kidney Foundation, irrespective of diagnosis, the stage of the disease is based on the level of kidney function: Stage Description GFR(mL/min/1.73 m(2)) 1 Kidney damage with normal or decreased GFR 90 2 Kidney damage with mild decrease in GFR 60-89 3 Moderate decrease in GFR 30-59 4 Severe decrease in GFR 15-29 5 Kidney failure <15 (or dialysis) 13 Because ethnic data is not always readily available, this report includes an eGFR for both -Americans and non- Americans. The National Kidney Disease Education Program (NKDEP) does not endorse the use of the MDRD equation for patients that are not between the ages of 18 and 70, are , have extremes of body size, muscle mass, or nutritional status, or are non- or non-. According to the National Kidney Foundation, irrespective of diagnosis, the stage of the disease is based on the level of kidney function: Stage Description GFR(mL/min/1.73 m(2)) 1 Kidney damage with normal or decreased GFR 90 2 Kidney damage with mild decrease in GFR 60-89 3 Moderate decrease in GFR 30-59 4 Severe decrease in GFR 15-29 5 Kidney failure <15 (or dialysis) 14 Therapeutic target for the treatment of diabetes Mellitus patients is <7% HBA1C, and in selective patients <6.0%.Please refer to [place] Diabetes Association Diabetic care guidelines for further information. 15 Desirable <150 Borderline high 150-199 High 200-499 Very High >500 16 Desirable <200 Borderline high 200-239 High >239 17 Low <40 Desirable: 40-60 High: >60 18 Desirable: <100 mg/dL Near Optimal: 100-129 mg/dL Borderline High: 130-159 mg/dL High: 160-189 mg/dL Very High: >189 mg/dL 19 SEE RESULT BELOW Name: LEDA BHAT : [address]: Cathy Flores MD Acct: [id number] Unit: [id number] AGE: 50 Location: [facility] Re06/28/15 SEX: F Status: REG REF SPEC: [id number] AMIE: 06/28/15-[address]: Cathy Flores MD REQ: [id number] RECD: 06/28/15 STATUS: SOUT _ ORDERED: IMAGE ANALYSIS, HPV 16/18 GENE COMMENTS: [id number] FINAL DIAGNOSIS Negative for Intraepithelial lesion or Malignancy A. Ectocervical/Endocervical Specimen Adequacy: Satisfactory of evaluation Transformation zone component identified Patient Information: HPV: Thin Layer Pap Test w/reflex to high risk HPV RNA testing when ASCUS HPV 16/18 Genotype Reflex Actual Specimen Date: 06/28/15 Spec Date if unknown: 2014 Post Menopausal?: Y Previous Abnormal Pap Smears?:Y If Yes, enter Diagnosis: Atypical Squamous cells of uncertain significance. Signed (signature on file) ROYA Ware (ASCP) 06/28 1301 This Pap test was evaluated with the assistance of the PremiTechp Test Imaging System. Due to cytologic findings at the quality assurance coach microscope, comprehensive manual rescreening by a Bar And Filler Assembler may be required. The Pap Smear is a screening test designed to aid in the detection of premalignant and malignant conditions of the uterine cervix. It is not a diagnostic procedure and should not be used as the sole means of detecting cervical cancer. Both false- positive and false- negative reports do occur. Depending on your risk status, a Pap smear should be obtained and evaluated every 1-3 years. END OF REPORT * ML=Testing performed at Main Lab DEPARTMENT OF PATHOLOGY, [facility] [employer] [place] [address] Gilberto Eric M.D. Director [facility] # [id number] RUN DATE: 04/23/14 [facility] LAB LIVE PAGE 1 RUN TIME: 3654 [facility] [employer] [place], [place] [address] Specimen Inquiry Name: LEDA BHAT : [address]: Cathy Flores MD Acct: [id number] Unit: [id number] AGE: 49 Location: [facility] Re04/22/14 SEX: F Status: REG REF SPEC: [id number] AMIE: 04/22/14-[address] [facility] [address]: Cathy Flores MD REQ: [id number] RECD: 04/22/14-1536 STATUS: SOUT _ ORDERED: IMAGE ANALYSIS, PAP SM PATH REV, HPV/Thin Prep, HPV 16/18 GENE FINAL DIAGNOSIS EPITHELIAL CELL ABNORMALITIES Atypical squamous cells of undetermined significance A. Ectocervical/Endocervical Specimen Adequacy: Satisfactory of evaluation Transformation zone component identified Patient Information: HPV: High risk HPV RNA testing regardless of pap results. HPV 16/18 Genotype for HPV pos Actual Specimen Date: 04/22/14 Post Menopausal?: Y Previous Abnormal Pap Smears?:N Date Time Test Result Flag (u) Normal Range 04/22/14 1321 HPV RNA RFLX GE Negative Negative The high-risk HPV types detected by the assay include: 16, 18, 31, 33, 35, 39, 45, 51, 52, 56, 58, 59, 66, and 68. Signed (signature on file) Gilberto Eric MD 2204 This Pap test was evaluated with the assistance of the ZAP Test Imaging System. Due to cytologic findings at the quality assurance coach microscope, comprehensive manual rescreening by a Bar And Filler Assembler may be required. The Pap Smear is a screening test designed to aid in the detection of premalignant and malignant conditions of the uterine cervix. It is not a diagnostic procedure and should not be used as the sole means of detecting cervical cancer. Both false- positive and false- negative reports do occur. Depending on your risk status, a Pap smear should be obtained and evaluated every 1-3 years. END OF REPORT * ML=Testing performed at Main Lab DEPARTMENT OF PATHOLOGY, [address] [place] [address] Gilberto Eric M.D. Director [facility] # [id number] 21 The high-risk HPV types detected by the assay include: 16, 18, 31, 33, 35, 39, 45, 51, 52, 56, 58, 59, 66, and 68. 22 Because ethnic data is not always readily available, this report includes an eGFR for both -Americans and non- Americans. The National Kidney Disease Education Program (NKDEP) does not endorse the use of the MDRD equation for patients that are not between the ages of 18 and 70, are , have extremes of body size, muscle mass, or nutritional status, or are non- or non-. According to the National Kidney Foundation, irrespective of diagnosis, the stage of the disease is based on the level of kidney function: Stage Description GFR(mL/min/1.73 m(2)) 1 Kidney damage with normal or decreased GFR 90 2 Kidney damage with mild decrease in GFR 60-89 3 Moderate decrease in GFR 30-59 4 Severe decrease in GFR 15-29 5 Kidney failure <15 (or dialysis) 23 Therapeutic target for the treatment of diabetes Mellitus patients is <7% HBA1C, and in selective patients <6.0%.Please refer to [place] Diabetes Association Diabetic care guidelines for further information. 24 FASTING 25 Because ethnic data is not always readily available, this report includes an eGFR for both -Americans and non- Americans. The National Kidney Disease Education Program (NKDEP) does not endorse the use of the MDRD equation for patients that are not between the ages of 18 and 70, are , have extremes of body size, muscle mass, or nutritional status, or are non- or non-. According to the National Kidney Foundation, irrespective of diagnosis, the stage of the disease is based on the level of kidney function: Stage Description GFR(mL/min/1.73 m(2)) 1 Kidney damage with normal or decreased GFR 90 2 Kidney damage with mild decrease in GFR 60-89 3 Moderate decrease in GFR 30-59 4 Severe decrease in GFR 15-29 5 Kidney failure <15 (or dialysis) 26 Therapeutic target for the treatment of diabetes Mellitus patients is <7% HBA1C, and in selective patients <6.0%.Please refer to [place] Diabetes Association Diabetic care guidelines for further information. 27 Desirable <150 Borderline high 150-199 High 200-499 Very High >500 28 Desirable <200 Borderline high 200-239 High >239 29 Low <40 Desirable: 40-60 High: >60 30 Desirable <100 Near Optimal 100-129 Borderline high 130-159 High 160-189 Very High >189 31 Because ethnic data is not always readily available, this report includes an eGFR for both -Americans and non- Americans. The National Kidney Disease Education Program (NKDEP) does not endorse the use of the MDRD equation for patients that are not between the ages of 18 and 70, are , have extremes of body size, muscle mass, or nutritional status, or are non- or non-. According to the National Kidney Foundation, irrespective of diagnosis, the stage of the disease is based on the level of kidney function: Stage Description GFR(mL/min/1.73 m(2)) 1 Kidney damage with normal or decreased GFR 90 2 Kidney damage with mild decrease in GFR 60-89 3 Moderate decrease in GFR 30-59 4 Severe decrease in GFR 15-29 5 Kidney failure <15 (or dialysis) 32 -- REFERENCE VALUE -- 25-HYDROXY D TOTAL (D2+D3) Optimum levels in the healthy population are 20-50, patients with bone disease may benefit from higher levels within this range. Test Performed by: [address] [address] Para[employer]: Catalino Angel III, M.D. 33 It is recognized that currently available assays for the detection of antibodies to HIV-1 and/or HIV-2 may not detect all infected individuals. HIV antibodies may be undetectable in some stages of the infection and in some clinical conditions. The performance of this assay has not been established for populations of infants or children. Assayed by Chemiluminescence Microparticle Immunoassay on the Siemens Advia Centaur CP. Values obtained with different methods or kits cannot be used interchangeably.The diagnostic specificity of the ADVIA Centaur 1/O/2 Enhanced assay in the low risk population was 99.90% (6052/6058) with a 95% confidence interval of 99.78 to 99.96%. 34 Because ethnic data is not always readily available, this report includes an eGFR for both -Americans and non- Americans. The National Kidney Disease Education Program (NKDEP) does not endorse the use of the MDRD equation for patients that are not between the ages of 18 and 70, are , have extremes of body size, muscle mass, or nutritional status, or are non- or non-. According to the National Kidney Foundation, irrespective of diagnosis, the stage of the disease is based on the level of kidney function: Stage Description GFR(mL/min/1.73 m(2)) 1 Kidney damage with normal or decreased GFR 90 2 Kidney damage with mild decrease in GFR 60-89 3 Moderate decrease in GFR 30-59 4 Severe decrease in GFR 15-29 5 Kidney failure <15 (or dialysis) 35 HDL Interpretation: Undesirable: High Risk: Less than 40 MG/DL Desirable: Low Risk: Greater than 60 MG/DL 36 LDL Interpretation: Low Risk Optimal Level: LDL Less than 100 MG/DL Near or Above Optimal: LDL 100-129 MG/DL Borderline High Risk: LDL 130-159 MG/DL High Risk: LDL 160-189 MG/DL Very High Risk: LDL Greater than 189 MG/DL 37 A metabolite of Naproxen, O-desmethylnaproxen, has been shown to interfere with the Jendrassik-[place] method for measuring total bilirubin. Samples from patients who have taken Naproxen have shown spurious elevation in total bilirubin levels. 38 Please note updated reference range, effective 09/09/09 39 RUN DATE: 10/04/11 [facility] NMI LIVE PAGE 1 RUN TIME: 1950 Specimen Inquiry RUN USER: INTERFACE Name: LEDA BHAT Status: REG REF Re10/04/11 Age/Sex: 46/F Unit#: [id number] Location: [facility] : 65 SPEC #: [id number] AMIE: 10/04/11-1002 STATUS: COMP REQ #: [id number] RECD: 10/04/11-[address] [facility] [address]: Marielos Flores MDa SOURCE: VAGINAL ENTR: 10/04/11-[address]: SRINIVAS: ORDERED: AFFIRM QUERIES: MEDENT REQUISITION # [id number] ACT WKST: AFFIRM 10/04/11 #2 Procedure Result Verified Site > VAGINAL DNA PROBE Final 10/04/11- 1950 ML TRICHOMONAS NEGATIVE GARDNERELLA POSITIVE LAURY SPP NEGATIVE The presence of G. vaginalis, although suggestive, is not diagnostic for bacterial vaginosis. Results should be interpreted in conjunction with other clinical and laboratory data available. Women with vaginal discharge should be evaluated for risk factors of cervicitis and pelvic inflammatory disease, toxic shock syndrome (S.aureus), and if present, evaluated for organisms not included in this assay such as N. gonorrhoeae, C. trachomatis, Mobiluncus, Mycoplasma and/or Prevotella. Mixed infections may occur. The performance of this test on patient specimens collected during or immediately after antimicrobial therapy is unknown. The presence or absence of Laury species, G. vaginalis or T. vaginalis cannot be used as a test for therapeutic success or failure. [facility] State Permit #[id number] [address] [place] [id number] DEPARTMENT OF PATHOLOGY, [address] [place] [address] [facility] Permit #[id number] Gilberto Eric M.D. Director Yefri Ramires M.D. Taper Machine 40 Anion gap measurement may be of limited value in the presence of any alkalosis, especially in a combined acid base disorder. . 41 A metabolite of Naproxen, O-desmethylnaproxen, has been shown to interfere with the Jendrassik-Jian method for measuring total bilirubin. Samples from patients who have taken Naproxen have shown spurious elevation in total bilirubin levels. 42 Because ethnic data is not always readily available, this report includes an eGFR for both -Americans and non- Americans. The National Kidney Disease Education Program (NKDEP) does not endorse the use of the MDRD equation for patients that are not between the ages of 18 and 70, are , have extremes of body size, muscle mass, or nutritional status, or are non- or non-. According to the National Kidney Foundation, irrespective of diagnosis, the stage of the disease is based on the level of kidney function: Stage Description GFR(mL/min/1.73 m(2)) 1 Kidney damage with normal or decreased GFR 90 2 Kidney damage with mild decrease in GFR 60-89 3 Moderate decrease in GFR 30-59 4 Severe decrease in GFR 15-29 5 Kidney failure <15 (or dialysis) 43 Please note: New reference range, effective 02/09/11 NORMAL REFERENCE RANGE: GREATER THAN 4.1 NG/ML 44 Test Performed by: [address] [address] Para[employer]: Catalino Angel III, M.D. 45 A metabolite of Naproxen, O-desmethylnaproxen, has been shown to interfere with the Jengemmaik-Jian method for measuring total bilirubin. Samples from patients who have taken Naproxen have shown spurious elevation in total bilirubin levels. 46 Please note updated reference range, effective 09/09/09 47 Please note change in reference range effective 08 . 48 Anion gap measurement may be of limited value in the presence of any alkalosis, especially in a combined acid base disorder. . 49 Because ethnic data is not always readily available, this report includes an eGFR for both -Americans and non- Americans. The National Kidney Disease Education Program (NKDEP) does not endorse the use of the MDRD equation for patients that are not between the ages of 18 and 70, are , have extremes of body size, muscle mass, or nutritional status, or are non- or non-. According to the National Kidney Foundation, irrespective of diagnosis, the stage of the disease is based on the level of kidney function: Stage Description GFR(mL/min/1.73 m(2)) 1 Kidney damage with normal or decreased GFR 90 2 Kidney damage with mild decrease in GFR 60-89 3 Moderate decrease in GFR 30-59 4 Severe decrease in GFR 15-29 5 Kidney failure <15 (or dialysis) 50 Test Performed by: [address] [address] Paraoptometric: Catalino Angel III, M.D. 51 Lymphopenia % 52 ---- RUN DATE: 07/26/11 [facility] NMI LIVE PAGE 1 RUN TIME: 1445 Specimen Inquiry RUN USER: INTERFACE -- Name: LEDA BHAT Status: REG REF Re07/26/11 Age/Sex: 46/F Unit#: [id number] Location: [facility] : 65 -- Specimen: [id number] [facility] Spec Date:07/26/11 [facility] Dr: Cathy cleary MD Spec Type: CYTOLOGY Received:07/26/11-1242 Copies to: SOURCE ECTOCERVICAL/ENDOCERVICAL Thin Prep with Reflex HPV Test PATIENT INFORMATION ACTUAL COLLECTION DATE: 07/26/11 PREVIOUS ABNORMAL PAP SMEARS No LAST MENSTRUAL PERIOD: 07/03/11 ADEQUACY OF SPECIMEN Satisfactory for evaluation * Transformation zone component identified * DIAGNOSIS NEGATIVE FOR INTRAEPITHELIAL LESION OR MALIGNANCY * Shift in jose suggestive of bacterial vaginosis * This Pap test was evaluated with the assistance of the ThinPrep Pap Test Imaging System. The Pap Smear is a screening test designed to aid in the detection of premalign ant and malignant conditions of the uterine cervix. It is not a diagnostic procedure a nd should not be used as the sole means of detecting cervical cancer. Both false- positiv e and false-negative reports do occur. Depending on your risk status, a Pap smear yady uld be obtained and evaluated every one to three years. Final Interpretation electronically signed by: Mendel BOLAND([facility]) 07/26/11 144 4 -- -- DEPARTMENT OF PATHOLOGY, [address] [place] [address] [facility] Permit #[id number] Gilberto Eric M.D. Director Yefri Ramires M.D. Feed Management Advisor Dir allyson -- 53 A metabolite of Naproxen, O-desmethylnaproxen, has been shown to interfere with the Ricardo method for measuring total bilirubin. Samples from patients who have taken Naproxen have shown spurious elevation in total bilirubin levels. 54 Please note updated reference range, effective 09/09/09 55 pt has appt Monday 04/17, with Dr. Flores to review labs 56 -- REFERENCE VALUE -- 25-HYDROXY D TOTAL (D2+D3) Optimum levels in the normal population are 25-80 Test Performed by: [facility] Dpt of Lab Med and Pathology [address] [place] [address] Paraoptometric: Catalino Angel III, M.D. 57 Test Performed by: [facility] Dpt of Lab Med and Pathology [address] [place] [address] Paraoptometric: Catalino Angel III, M.D. 58 CHOLESTEROL INTERPRETATION: Desirable: Less than 200 MG/DL Borderline-High Risk: 200-239 MG/DL High-Risk: 240 MG/DL and over 59 HDL INTERPRETATION: Undesirable: High Risk: Less than 40 MG/DL Desirable: Low Risk: Greater than 60 MG/DL 60 LDL INTERPRETATION: Low Risk Optimal Level: LDL Less than 100 MG/DL Near or Above Optimal: LDL 100-129 MG/DL Borderline High Risk: LDL 130-159 MG/DL High Risk: LDL 160-189 MG/DL Very High Risk: LDL Greater than 189 MG/DL 61 Anion gap measurement may be of limited value in the presence of any alkalosis, especially in a combined acid base disorder. . 62 A metabolite of Naproxen, O-desmethylnaproxen, has been shown to interfere with the Jendrassik-Jian method for measuring total bilirubin. Samples from patients who have taken Naproxen have shown spurious elevation in total bilirubin levels. 63 Because ethnic data is not always readily available, this report includes an eGFR for both -Americans and non- Americans. The National Kidney Disease Education Program (NKDEP) does not endorse the use of the MDRD equation for patients that are not between the ages of 18 and 70, are , have extremes of body size, muscle mass, or nutritional status, or are non- or non-. According to the National Kidney Foundation, irrespective of diagnosis, the stage of the disease is based on the level of kidney function: Stage Description GFR(mL/min/1.73 m(2)) 1 Kidney damage with normal or decreased GFR 90 2 Kidney damage with mild decrease in GFR 60-89 3 Moderate decrease in GFR 30-59 4 Severe decrease in GFR 15-29 5 Kidney failure <15 (or dialysis) Procedures Date CPT Code Description Status 06/20/2017 83098 Interrogation Implant Cardiovasc Monitor System Incl Completed Analysis Int 06/20/2017 59397 Interrogation Implant Cardiovasc Monitor System Incl Completed Analysis Int 06/20/2017 62095 Icd Eval With Inerative Adjustmt Dual Lead System Completed 06/20/2017 27010 Icd Eval With Inerative Adjustmt Dual Lead System Completed 04/03/2017 84244 Interrogation Implant Cardiovasc Monitor System Incl Completed Analysis Int 04/03/2017 36460 Interrogation Implant Cardiovasc Monitor System Incl Completed Analysis Int 04/03/2017 27784 Icd Eval With Inerative Adjustmt Dual Lead System Completed 04/03/2017 06518 Icd Eval With Inerative Adjustmt Dual Lead System Completed 03/07/2017 93778 EKG, Interpretation Only Completed 03/06/2017 23327 Insert/Replace Icd W/Generator Completed 03/06/2017 08332 ECHO Transthorasic Realtime 2D W Doppler & Color Flow Completed Hosp 02/28/2017 Mammogram Completed 05/18/2016 Colonoscopy Completed 07/22/2015 Mammogram Completed 06/28/2015 02022 EKG Tracing & Interpretation Completed 04/28/2014 Mammogram Completed 07/08/2013 Bone Mineral Density Test Completed 09/03/2012 Colonoscopy Completed 11/09/2011 Mammogram Completed 08/17/2011 Mammogram Completed Encounters Type Date Location Provider CPT E/M Dx Office Visit 06/22/2017 [facility] Kisha Katz, 45471 I44.1 9:45a Azalea Blackwell R55 Z95.810 Office Visit 04/11/2017 2:45p [facility] Kisha Katz, 56095 Z95.810 Azalea Blackwell R55 I44.1 Office Visit 04/05/2017 8:30a [facility] Saqib Flores M.D. 22739 I10 [place] Office Visit 03/12/2017 7:50a [facility] Saqib Flores M.D. 70501 R55 [place] Z95.0 F32.9 I10 Office Visit 03/06/2017 10:03a [facility] Jose Juan Katz, 42175 R55 Rishi R00.1 I44.2 Office Visit 03/05/2017 8:40a [facility] Suni Sethi, 80141 R00.1 Fabio Blackwell I10 Office Visit 11/30/2016 11:50a [facility] Cathy Flores 69357 Z00.00 - Ralph Blackwell R73.01 Z12.39 N89.8 N95.8 E78.2 B37.2 Office Visit 05/01/2016 10:50a [facility] Cathy Flores M.D. 22912 I10 [place] D64.9 R19.6 E78.2 Office Visit 12/29/2015 10:50a [facility] Cathy Flores M.D. 11890 I10 [place] N89.8 E78.2 Office Visit 06/28/2015 1:00p [facility] Cathy Flores 86859 Z00.00 - Lesly Blackwell R85.610 M25.531 N89.8 I10 Office Visit 03/17/2015 2:40p [facility] [place] [address] R05 Lesly Z86.2 Office Visit 11/02/2014 1:30p [facility] Cathy Flores 76096 790.21 - Lesly Blackwell 401.1 Office Visit 04/22/2014 11:50a [facility] Cathy Flores M.D. 68656 V70.0 - Lesly V72.31 V76.10 V76.2 401.1 790.21 281.9 530.81 Office Visit 09/09/2013 10:50a [facility] Cathy Flores 46884 733.90 - Lesly Blackwell 401.1 Office Visit 07/02/2013 11:50a [facility] Cathy Flores 96292 790.21 - Lesly Blackwell 272.2 401.1 733.90 782.9 726.90 Office Visit 01/07/2013 9:50a [facility] Cathy Flores 77956 790.21 - Lesly Blackwell 401.1 272.2 Office Visit 11/11/2012 10:50a [facility] Cathy Flores M.D. 31486 401.9 - [place] Office Visit 07/16/2012 9:50a [facility] Cathy Flores M.D. 74638 401.9 - [place] Office Visit 05/14/2012 11:50a [facility] Cathy Flores M.D. 92230 401.9 - [place] 281.9 272.2 Office Visit 04/25/2012 10:10a [facility] Cathy Flores M.D. 65831 401.9 - [place] 794.8 311 272.2 281.9 914.4 705.81 Office Visit 12/15/2011 10:00a [facility] Velvet Sal, N.PKristian 93399 401.9 - [place] Office Visit 11/15/2011 9:10a [facility] Cathy Flores M.D. 78254 401.9 - [place] 623.5 794.8 327.02 311 465.8 272.2 Office Visit 10/04/2011 8:50a [facility] - Cathy Flores M.D. 67385 311 [place] 794.8 327.02 623.5 401.9 Office Visit 08/24/2011 8:30a [facility] Cathy Flores M.D. 51678 281.9 - [place] 275.42 311 401.9 794.8 327.02 Office Visit 07/26/2011 8:30a [facility] Cathy Flores 64198 V72.31 - Lesly MMarek 311 401.9 790.6 780.79 275.42 V76.19 V76.2 272.2 Office Visit 06/14/2011 10:00a [facility] Cathy Flores M.D. 86321 401.9 - [place] 790.6 272.2 Office Visit 04/17/2011 9:30a [facility] Cathy Flores M.D. 66566 401.9 - [place] 272.2 455.2 706.1 Office Visit 03/15/2011 10:00a [facility] Cathy Flores M.D. 89328 401.9 - [place] 311 135 530.81 272.2 Office Visit 01/10/2011 10:30a DO Not Use [employer] [facility] Cathy Flores M.D. 68328 401.9 [place] 311 Office Visit 01/03/2011 9:30a DO Not Use [employer] [facility] Cathy Flores M.D. 58483 405.99 [place] 308.9 Plan of Care Future Appointment(s):12/03/2017 9:10 am - Cathy Flores M.D. at [facility] - Pvdrbrwux49/07/2018 - Cathy Flores M.D.B37.2 Candidiasis of skin and nailNew Medication:Fluconazole 100 mgClotrimazole/Betamethasone Dipropionate 1-0.05 %B34.9 Viral infection, unspecified
[2017-10-23] MEDS ORDERED: Lidocaine 2% EPI 1:200000 MPF*10-20 ML VIAL ONE (02:30)
--- NOTE | 2017-10-23 02:48 | ED ---
Adult Trauma - HPI Summary HPI Summary: A 52 y/o female presents to ED s/p fall and facial injury reaching 6/10 in severity. As per triage, "Pt stated that she tripped and fell on her face. Pt has swollen left lip. Pt denies LOC". According to the patient, she was going home when she fell on her face around midnight. Patient is in somewhat facial pain. - History of Current Complaint Chief Complaint: EDFacialInjury Stated Complaint: FALL Time Seen by Provider: 10/23/17 02:16 Hx Obtained From: Patient Mechanism of Injury: Fall Ambulatory at the Scene: No Loss of Consciousness: no loss of consciousness Onset/Duration: Started Hours Ago, Still Present Onset of Pain: Hours Onset Severity: Moderate Current Severity: Moderate Pain Intensity: 6 Pain Scale Used: 0-10 Numeric Location: Other - Face Aggravating Factor(s): Nothing Alleviating Factor(s): Nothing Associated Signs & Symptoms: Negative: Loss of Consciousness - Additional Pertinent History Primary Care Physician: DIAN - Allergy/Home Medications Allergies/Adverse Reactions: Allergies Allergy/AdvReac Type Severity Reaction Status Date / Time No Known Allergies Allergy Verified 10/23/17 01:27 PMH/Surg Hx/FS Hx/Imm Hx Endocrine/Hematology History: Denies: Hx Diabetes Cardiovascular History: Reports: Hx Hypertension Denies: Hx Pacemaker/ICD History: Denies: Hx Renal Disease Musculoskeletal History: Denies: Hx Osteoporosis Sensory History: Reports: Hx Contacts or Glasses Denies: Hx Hearing Aid Opthamlomology History: Reports: Hx Contacts or Glasses Psychiatric History: Denies: Hx Panic Disorder - Cancer History Cancer Type, Location and Year: No cancer but does have sarcoidosis - Surgical History Surgery Procedure, Year, and Place: UTERINE ABLATION. LYMPH NODES REMOVED A FEW REMOVED FROM CHEST. LT BREAST BIOPSY - BENIGN Infectious Disease History: No Infectious Disease History: Denies: Traveled Outside the [place] in Last 30 Days - Family History Known Family History: Positive: Hypertension Negative: Diabetes - Social History Alcohol Use: Rare Substance Use Type: Reports: None Hx Tobacco Use: No Smoking Status (MU): Former Smoker Review of Systems Negative: Fever Positive: Other - POSITIVE: Facial pain Neurological: Other - NEGATIVE: LOC All Other Systems Reviewed And Are Negative: Yes Physical Exam - Summary Physical Exam Summary: VITAL SIGNS: Reviewed. GENERAL: Patient is a well-developed and nourished female who is lying comfortable in the stretcher. Patient is not in any acute respiratory distress. HEAD AND FACE: No signs of trauma. No ecchymosis, hematomas or skull depressions. No sinus tenderness. EYES: PERRLA, EOMI x 2, No injected conjunctiva, no nystagmus. EARS: Hearing grossly intact. Ear canals and tympanic membranes are within normal limits. MOUTH: Oropharynx within normal limits. NECK: Supple, trachea is midline, no adenopathy, no JVD, no carotid bruit, no c- spine tenderness, neck with full ROM. CHEST: Symmetric, no tenderness at palpation LUNGS: Clear to auscultation bilaterally. No wheezing or crackles. CVS: Regular rate and rhythm, S1 and S2 present, no murmurs or gallops appreciated. ABDOMEN: Soft, non-tender. No signs of distention. No rebound no guarding, and no masses palpated. Bowel sounds are normal. EXTREMITIES: FROM in all major joints, no edema, no cyanosis or clubbing. NEURO: Alert and oriented x 3. No acute neurological deficits. Speech is normal and follows commands. SKIN: 1 cm by 1 cm laceration of left upper lip with free flap. Triage Information Reviewed: Yes Vital Signs On Initial Exam: Initial Vitals Temp Pulse Resp BP Pulse Ox 98.4 F 77 18 154/76 98 10/23/17 01:24 10/23/17 01:24 10/23/17 01:24 10/23/17 01:24 10/23/17 01:24 Vital Signs Reviewed: Yes Procedures - Laceration/Wound Repair 2 Location: face Length, Depth and Shape: 1 cm by 1 cm Suture Type: Chromic - 3-0 Number of Sutures: 3 1 Location: face Length, Depth and Shape: .5 cm Suture Type: Chromic Diagnostics - Vital Signs Vital Signs Temp Pulse Resp BP Pulse Ox 10/23/17 01:24 98.4 F 77 18 154/76 98 - Laboratory Lab Statement: Any lab studies that have been ordered have been reviewed, and results considered in the medical decision making process. Adult Trauma Course/Dx - Course Course Of Treatment: A 52 y/o female presents to ED s/p fall and facial injury reaching 6/10 in severity. No laboratory scans were done. In the ED course, the patient received no medications. Patient's facial lacerations were sutured. Patient will be discharged with a diagnosis of lip laceration. Patient is to follow up with PCP in 1-2 days. Patient is agreeable with this plan. - Diagnoses Provider Diagnoses: Lip laceration Discharge - Sign-Out/Discharge Documenting (check all that apply): Patient Departure - DISCHARGE - Discharge Plan Condition: Stable Disposition: HOME Patient Education Materials: Laceration (ED) Referrals: Cathy Flores MD [Primary Care Provider] - 2 Days Additional Instructions: FOLLOW UP WITH PRIMARY CARE IN 1-2 DAYS. RETURN TO ED FOR ANY NEW OR WORSENING SYMPTOMS. - Attestation Statements Document Initiated by Scribe: Yes Documenting Scribe: Kwame Foley Provider For Whom Scribe is Documenting (Include Credential): Violet Miles Attestation: Kwame Marcano, morrised for Argenis Mishra on 10/23/17 at 0254.
[2017-10-23 03:09] VITALS: BP 120/73
== END 2017-10-23 03:08 | disposition home or self-care (01) ==
LOC: ED 01:23
DX: S01.511A Laceration without foreign body of lip, initial encounter (principal); I10 Essential (primary) hypertension; Z87.891 Personal history of nicotine dependence; W18.09XA Striking against other object with subsequent fall, initial encounter; Y92.9 Unspecified place or not applicable
CPT/HCPCS: 12011; 99281